=== PATIENT | female | born 1995 | race Native Hawaiian/Other Pacific Islander ===

== ENCOUNTER 2022-09-20 15:32 | Emergency (ER) | payer MEDICAID, SELFPAY ==
--- NOTE | ~2022-09-20 | US_ITS ---
EXAMINATION: US THYROID CLINICAL INFORMATION: COMPARISON: None TECHNIQUE: Linear transducer grayscale and color Doppler examination with attention to the region of the thyroid. FINDINGS: SIZE: Measurements of the thyroid lobes and nodules are given in sagittal, anteroposterior and transverse dimensions respectively. Right Thyroid Lobe: 5.4 x 2.2 x 2.3 cm, volume 14.1 mL. Parenchyma: The gland echotexture is homogeneous. Thyroid vascularity is normal. Left Thyroid Lobe: 5.4 x 1.4 x 1.6 cm, volume 6.2 mL. Parenchyma: The gland echotexture is homogeneous. Thyroid vascularity is normal. Isthmus: 0.3 cm in maximum AP dimension. Estimated total number of nodules greater than or equal to 1 cm: 1. Infrastructure Administrator nodules are described as follows: 1. Location: Lower pole right thyroid lobe. Size: 2.9 x 2.2 x 2.6 cm, volume 8.5 mL. Nodule characteristics: Composition: Solid/almost completely solid (2). Echogenicity: Hypoechoic (2). Shape: Not taller than wide (0). Margins: Smooth (0). Echogenic Foci: None (0). ACR TI-RADS total points: 4 ACR TI-RADS category: 4 NODES: No lymphadenopathy is seen in the tissue surrounding the thyroid gland. US/US thyroid IMPRESSION: A dominant 2.9 cm ACR TI-RADS category 4 nodule in the inferior right thyroid lobe . Given its size and ACR TI-RADS category, this nodule meets the ACR criteria recommendation for FNA. (Referring physician staff is being called, to be alerted of the above findings and recommendations.) PSA EM ACR TI-RADS RECOMMENDATION REFERENCE: Ultrasound-guided fine-needle aspiration, followup ultrasound, no further follow up. * TR1 (0 point) and TR 2 (2 points): No FNA or follow up. * TR3 (3 points): FNA if more than or equal to 2.5 cm in maximum dimension, followup ultrasound in 1, 3 and 5 years if 1.5 to 2.4 cm in maximum dimension. * TR4 (4-6 points): FNA if more than or equal to 1.5 cm in maximum dimension, followup ultrasound in 1, 2, 3 and 5 years if 1 to 1.4 cm in maximum dimension. * TR5 (more than or equal to 7 points): FNA if more than or equal to 1 cm in maximum dimension, followup ultrasound every year for 5 years if 0.5 to 0.9 cm in maximum dimension. * TR3, TR4 or TR5 nodules that are below the size threshold for followup receive no follow up.
--- NOTE | 2022-09-20 15:44 | ED.GENADULT ---
HPI - General Adult General Chief complaint: General Medical Stated complaint: lump on neck Time Seen by Provider: 09/20/22 18:02 Source: patient Mode of arrival: ambulatory Limitations: no limitations History of Present Illness HPI narrative: Patient is a 27 year old assigned female at with no reported medical history presenting to the emergency department today with a lump on her neck. Patient states that she noticed a lump on her neck starting a couple days ago. Patient denies any pain with the lump. Patient states that she has had some episodes of palpitations and hair thinning. Patient denies any dizziness, lightheadedness, abdominal pain, nausea, vomiting, fever, chills, blurry vision, double vision, loss of vision, chest pain, difficulty breathing, shortness of breath, back pain, night sweats, pain with urination, increased urinary frequency, increased urinary urgency, blood in her urine or stool, syncope or a near syncopal episode, recent trauma or falls, bowel incontinence, bladder incontinence, bowel retention, bladder retention, or any other complaints at this time. Onset (ago): day(s) (2) Location: neck Radiation: neck Severity: mild Severity scale (1-10): 2 Relieving factors: none Exacerbating factors: none Associated symptoms: denies other symptoms Treatments prior to arrival: none Related Data Allergies Allergy/AdvReac Type Severity Reaction Status Date / Time sulfamethoxazole Allergy Rash Verified 09/20/22 15:50 [From Bactrim] trimethoprim [From Bactrim] Allergy Rash Verified 09/20/22 15:50 Review of Systems Constitutional: Constitutional: Reports no additional constitutional complaints, Denies chills, Denies fever(s) and Denies night sweats Eyes: Eyes: Reports no additional eye complaints, Denies blurry vision, Denies change in vision, Denies diplopia, Denies eye discharge, Denies loss of vision and Denies eye pain ENT: Denies dizziness and Reports neck mass Cardiovascular: Cardiovascular: Reports no additional cardiovascular complaints, Denies chest pain, Denies lightheadedness, Denies Loss of Consciousness and Denies dyspnea Respiratory: Respiratory: Reports no additional respiratory complaints and Denies dyspnea Gastrointestinal: Gastrointestinal: Reports no additional gastrointestinal complaints, Denies abdominal pain, Denies melena, Denies hematochezia, Denies change in bowel habits and Denies change in stool character Genitourinary: Genitourinary: Denies hematuria, Denies urinary frequency, Denies dysuria, Denies urinary incontinence, Denies urinary hesitancy and Denies urinary urgency Musculoskeletal: Musculoskeletal: Reports no additional musculoskeletal complaints, Denies numbness and Denies tingling Neurologic: Denies dizziness, Denies loss of vision, Denies numbness and Denies tingling Psychiatric: Psychiatric: Reports no additional psychiatric complaints Endocrine: Endocrine: Reports no additional endocrine complaints Hematologic/Lymphatic: Hematologic/Lymphatic: Reports no additional hematologic/lymphatic complaints Allergic/Immunologic: Allergic/Immunologic: Reports no additional allergic/immunologic complaints [facility] Past Medical History Attestation statement: The following information was validated with the patient. Source: old records reviewed and nursing notes reviewed Social History Social History Advance Directives: No Advance Directives Information Provided: No Physical Exam ED Vital Signs: Vital Signs - 24 hr 09/20/22 15:45 Temperature 98.8 F Pulse Rate 73 Respiratory Rate 18 Blood Pressure 137/74 Pulse Oximetry 100 Oxygen Delivery Method Room Air BMI result Body Mass Index 28.8 Const General: cooperative, no acute distress, alert and awake Nutritional Appearance: well nourished Orientation/consciousness: patient oriented x3 Limitations: no limitations HENMT Head: Yes normal to inspection and Yes atraumatic Ears: hearing grossly normal bilaterally and external ears normal General nose exam: Normal external nose present, no nasal discharge noted and no epistaxis Face and sinus: Yes normal facial exam, No abrasion and No laceration Mouth: Normal oral and palatal mucosa present, no drooling and no muffled voice Eyes General: appearance normal, both eyes and all related structures Periorbital: periorbital findings normal Eyelids: Yes eyelids normal Conjunctivae: conjunctivae normal Pupils: Equal, round and reactive pupils present EOM: EOMs intact bilaterally Neck Other: mass present to the right side of the neck in the area of the thyroid gland Neck: Yes full ROM and Yes no lymphadenopathy Chest Chest palpation & inspection: normal inspection of the chest Resp Effort & Inspection: normal respiratory effort and able to speak in complete sentences Auscultation: clear to auscultation bilaterally Cardio Rate: regular rate Rhythm: regular rhythm GI Inspection: Yes normal to inspection Palpation (GI): Soft to palpation, not firm, nontender, no guarding and not rigid Neuro General: patient oriented x3 and moves all extremities Cranial nerves: Yes Equal, round and reactive pupils present Cognition (Neuro): normal cognition Motor exam (neuro): 5/5 motor strength present throughout Sensory Exam: Normal double simultaneous stimulation for sensation Coordination: [id number] test normal Extrem General: Yes normal to inspection, Yes full ROM and Yes capillary refill normal Psych Appearance: grossly normal Mental Status: mental status grossly normal Affect: normal affect Attitude: cooperative Thought process: Normal thought process present Thought content: Normal thought content present Insight: Good insight present (Psych) Medical Decision Making Medical Decision Making MDM Narrative: Patient is a 27 year old assigned female at with no reported medical history presenting to the emergency department today with a neck mass. Patient's physical exam showed an obviously enlarged area of the right side of the neck near the area of the thyorid. Patient's blood work showed a mildly elevated WBC count of 12.4 which is consistent with a stress reaction. Patient's TSH was normal. Patient's thyroid US showed a dominant 2.9 cm ACR TI-RADS category 4 nodule in the inferior right thyroid lobe. I explained my physical exam findings as well as all test results to the patient. I answered all questions asked by the patient. I stressed the importance of the patient taking her medication as prescribed. I stressed the importance of the patient following up with her primary care provider and a general surgeon as she needs a fine needle aspiration of this nodule, MARCELL. I stressed the importance of the patient returning to the emergency department immediately if her symptoms were to worsen or if she were to develop any dizziness, shortness of breath, difficulty breathing, chest pain, blurry vision, loss of vision, nausea, vomiting, abdominal pain, fever, chills, back pain, or any other complaints. Patient verbalized agreement and understanding with this treatment plan and discharge. Differential Diagnosis Differential Diagnoses: The differential diagnosis associated with the presentation includes thyroid nodule, thyroid cancer Lab Data [facility] Lab Attestation statement: I reviewed the patient's lab results. Result Diagrams: 09/20/22 16:18 09/20/22 16:18 Labs: Lab Results 09/20/22 09/20/22 Range/Units 16:18 16:18 WBC 12.4 H (4.8-10.8) X10*3/uL RBC 4.53 (4.20-5.50) X10*6/uL Hgb 13.5 (12.0-16.0) g/dl Hct 40.7 (37.0-47.0) % MCV 89.8 (80.0-98.0) fL MCH 29.8 (27.0-33.0) pg MCHC 33.2 (31.0-35.0) g/dl RDW 12.7 (11.0-16.0) % Plt Count 282 (160-400) X10*3/uL MPV 9.7 (9.4-12.3) fL Immature Gran % (Auto) 0.3 (0.0-0.4) % Neut % (Auto) 76.4 H (45-73) % Lymph % (Auto) 15.1 L (20-40) % [place] % (Auto) 6.1 (2-11) % Eos % (Auto) 1.8 (0-4) % Baso % (Auto) 0.3 (0-2) % Lymph # (Auto) 1.9 (1.2-4.9) X10*3/uL [place] # (Auto) 0.8 (0.1-1.2) X10*3/uL Eos # (Auto) 0.2 (0.0-0.4) X10*3/uL Baso # (Auto) 0.0 (0.0-0.2) X10*3/uL Abs Immat Gran (auto) 0.04 H (0.00-0.03) X10*3/uL Absolute Neuts (auto) 9.5 H (2.0-8.3) x10*3/uL Absolute Nucleated RBC 0.000 (0.0-0.012) X10*3/uL Nucleated RBC % (auto) 0.0 (0.0-0.2) /100WBC Sodium 137 (135-145) mmol/L Potassium 4.5 (3.3-5.1) mmol/L Chloride 105 (96-108) mmol/L Carbon Dioxide 27 (22-29) mmol/L Anion Gap 10 L (12-20) BUN 9 (9-16) mg/dL Creatinine 0.75 (0.5-1.4) mg/dL Estim Creat Clear Calc 132.3 Estimated GFR > 60 Random Glucose 127 H (60-115) mg/dL Calcium 9.2 (8.4-10.2) mg/dL Magnesium 2.2 (1.6-2.6) mg/dL Total Bilirubin 0.6 (0.0-1.0) mg/dL AST 24 (5-31) U/L ALT 12 (0-31) U/L Alkaline Phosphatase 49 (39-117) U/L Total Protein 7.5 (6.5-8.0) g/dL Albumin 4.4 (3.5-5.0) g/dL TSH 1.05 (0.32-4.0) uIU/mL Radiology Impression Discussion of test interpretation with radiology: I have reviewed the radiologist's reading. Radiologist Impression: My interpretation is in agreement with the radiologist's impression of this imaging study. EXAMINATION: US THYROID CLINICAL INFORMATION: COMPARISON: None TECHNIQUE: Linear transducer grayscale and color Doppler examination with attention to the region of the thyroid. FINDINGS: ? SIZE: Measurements of the thyroid lobes and nodules are given in sagittal, anteroposterior and transverse dimensions respectively. Right Thyroid Lobe: 5.4 x 2.2 x 2.3 cm, volume 14.1 mL. Parenchyma: The gland echotexture is homogeneous. Thyroid vascularity is normal. Left Thyroid Lobe: 5.4 x 1.4 x 1.6 cm, volume 6.2 mL. Parenchyma: The gland echotexture is homogeneous. Thyroid vascularity is normal. Isthmus: 0.3 cm in maximum AP dimension. Estimated total number of nodules greater than or equal to 1 cm: 1. Carpenter Assistant nodules are described as follows: 1. Location: Lower pole right thyroid lobe. ?? ? Size: 2.9 x 2.2 x 2.6 cm, volume 8.5 mL. ?? ? Nodule characteristics: ?? ? Composition: Solid/almost completely solid (2). ?? ? Echogenicity: Hypoechoic (2). ?? ? Shape: Not taller than wide (0). ?? ? Margins: Smooth (0). ?? ? Echogenic Foci: None (0). ?? ? ACR TI-RADS total points: 4 ?? ? ACR TI-RADS category: 4 NODES: No lymphadenopathy is seen in the tissue surrounding the thyroid gland. US/US thyroid IMPRESSION: A dominant 2.9 cm ACR TI-RADS category 4 nodule in the inferior right thyroid lobe . ? Given its size and ACR TI-RADS category, this nodule meets the ACR criteria recommendation for FNA. ? (Referring physician staff is being called, to be alerted of the above findings and recommendations.) ? PSA EM ACR TI-RADS RECOMMENDATION REFERENCE: Ultrasound-guided fine-needle aspiration, followup ultrasound, no further follow up. ? * TR1 (0 point) and TR 2 (2 points): No FNA or follow up. ? * TR3 (3 points): FNA if more than or equal to 2.5 cm in maximum dimension, followup ultrasound in 1, 3 and 5 years if 1.5 to 2.4 cm in maximum dimension. ? * TR4 (4-6 points): FNA if more than or equal to 1.5 cm in maximum dimension, followup ultrasound in 1, 2, 3 and 5 years if 1 to 1.4 cm in maximum dimension. ? * TR5 (more than or equal to 7 points): FNA if more than or equal to 1 cm in maximum dimension, followup ultrasound every year for 5 years if 0.5 to 0.9 cm in maximum dimension. ? * TR3, TR4 or TR5 nodules that are below the size threshold for followup receive no follow up. Dictated By: Areli Portillo MD Signed By: Electronically signed by Areli Portillo MD 09/20/22 4331 Discharge Plan Discharge Clinical Impression: Thyroid nodule Patient Disposition: Home, Self-Care Instructions: Thyroid Nodules (ED), Total Thyroidectomy (DC), Thyroid Fine-Needle Aspiration Biopsy (DC) Additional Instructions: Follow up with your primary care provider and a general surgeon. Return to the emergency department immediately if your symptoms worsen or if you develop any dizziness, shortness of breath, difficulty breathing, chest pain, blurry vision, loss of vision, nausea, vomiting, abdominal pain, fever, chills, back pain, or any other complaints. Referrals: [facility] [place] General Surgeons [Provider Group] (Call to establish and follow up with a general surgeon.) [facility] [place] Family Medicine [Provider Group] (Call to establish and follow up with a primary care provider. If you already have a primary care provider, please follow up with them. ) [facility] [place] Primary Care, Vijaya [Provider Group] (Call to establish and follow up with a primary care provider. If you already have a primary care provider, please follow up with them. ) [facility] [place] Primary Care,Oneil [Provider Group] (Call to establish and follow up with a primary care provider. If you already have a primary care provider, please follow up with them. ) Atif Arellano MD [Physician] - Interventions: ED Discharge Assessment Last Done: 09/20/22 18:15 Discharge Date/Time: 09/20/22 18:22 Print Language: Khmer
[2022-09-20 15:45] VITALS: BP 137/74; PULSE 73; RESP 18; TEMP 37.1; O2SAT 100; BMI 28.8
[2022-09-20 16:27] LABS: MANUAL DIFF FLAG NO
[2022-09-20 16:39] LABS: Basophils Percent Auto 0.3 % (0-2); Eosinophils Absolute Auto 0.2 X10*3/uL (0.0-0.4); Eosinophils Percent Auto 1.8 % (0-4); Hematocrit 40.7 % (37.0-47.0); Hemoglobin 13.5 g/dl (12.0-16.0); Imm Gran Abs Auto 0.04 X10*3/uL (0.00-0.03); Imm Gran Pct Auto 0.3 % (0.0-0.4); Lymphocytes Absolute Auto 1.9 X10*3/uL (1.2-4.9); Lymphocytes Percent Auto 15.1 % (20-40); Mean Corpuscular HGB Conc 33.2 g/dl (31.0-35.0); Mean Corpuscular Hemoglobin 29.8 pg (27.0-33.0); Mean Corpuscular Volume 89.8 fL (80.0-98.0); Mean Platelet Volume 9.7 fL (9.4-12.3); Monocytes Absolute Auto 0.8 X10*3/uL (0.1-1.2); Monocytes Percent Auto 6.1 % (2-11); Neutrophils Absolute Auto 9.5 x10*3/uL (2.0-8.3); Neutrophils Percent Auto 76.4 % (45-73); Platelet Count 282 X10*3/uL (160-400); Red Blood Count 4.53 X10*6/uL (4.20-5.50); Red Cell Distribution Width 12.7 % (11.0-16.0); White Blood Count 12.4 X10*3/uL (4.8-10.8)
[2022-09-20 16:48] LABS: Alanine Aminotransferase 12 U/L (0-31); Albumin Level 4.4 g/dL (3.5-5.0); Alkaline Phosphatase 49 U/L (39-117); Anion Gap 10 (12-20); Aspartate Amino Transferase 24 U/L (5-31); Bilirubin Total 0.6 mg/dL (0.0-1.0); Blood Urea Nitrogen 9 mg/dL (9-16); Calcium 9.2 mg/dL (8.4-10.2); Carbon Dioxide 27 mmol/L (22-29); Chloride 105 mmol/L (96-108); Creatinine Clr Calc Pharmacy 132.3; Estimated Glomerular Filt Rate > 60; Glucose Random 127 mg/dL (60-115); Magnesium 2.2 mg/dL (1.6-2.6); Potassium 4.5 mmol/L (3.3-5.1); Sodium 137 mmol/L (135-145); Total Protein 7.5 g/dL (6.5-8.0)
[2022-09-20 17:03] LABS: TSH reflex Free T4 1.05 uIU/mL (0.32-4.0)
== END 2022-09-20 18:22 | disposition home or self-care (01) ==
PROVIDERS: Physician Assistant Medical; Emergency Provider Internal Medicine
DX: E04.1 Nontoxic single thyroid nodule (principal); R22.1 Localized swelling, mass and lump, neck; Z79.899 Other long term (current) drug therapy
CPT/HCPCS: 36415; 76536; 80053; 83735; 84443; 85025; 99282; 99283

== ENCOUNTER 2022-11-12 13:16 | Outpatient (REF) | payer OTHER, SELFPAY ==
[2022-11-12 15:23] LABS: Free T4 (Free Thyroxine) 1.05 ng/dL (0.71-1.85); Thyroid Stimulating Hormone 1.25 uIU/mL (0.32-4.0)
== END 2022-11-12 13:17 | disposition home or self-care (01) ==
LOC: HO.LAB 13:16
PROVIDERS: PCP Registered Nurse; Visit Provider Internal Medicine
DX: E04.1 Nontoxic single thyroid nodule (principal)
CPT/HCPCS: 36415; 84439; 84443; 99202

== ENCOUNTER 2023-02-11 08:58 | Outpatient (REF) | payer OTHER, SELFPAY ==
--- NOTE | 2023-02-11 09:36 | PM.OP ---
Brief Operative Note Date of Service: 02/11/23 Pre-op diagnosis: Thyroid nodule Procedure: This is doctor Lou Shea. This is an ultrasound-guided fine-needle aspiration report. Indication: Multinodular Thyroid Porcedure: Procedure was explained to the patient. Alternatives, the risk and benefits were discussed. Written consent was obtained. A time-out was also obtained. After sterile preparation, 1 ml of 1% lidocaine solution was applied subcutaneously for anesthetic effect. Then Fine-needle aspiration of a right lower pole 1.3 cm thyroid nodule was performed using direct ultrasound guidance to confirm accurate needle placement. Two aspirations were made using 27 gauge needles. An additional 5 aspirations were made using 25 guage needles. Samples were submitted for cytology. One pass was dedicated for [employer] Gene sequencing director global medical affairs testing. One pass was dedicated for flow cytometry testing. The patient tolerated the procedure well. Aftercare instructions were provided. Impression: Uncomplicated fine needle aspiration biopsy of a right lower pole 1.3 cm thyroid nodule under ultrasound guidance. Surgeon: Lou Shea, DO Was an Computer Lab Aide used for this Procedure?: No Estimated blood loss (mL): 0
[2023-02-11] MEDS: Lidocaine HCl 1 % MPF 5 ML VIAL SUBCUT (10:50)
== END 2023-02-11 08:59 | disposition home or self-care (01) ==
LOC: HO.US 08:58
PROVIDERS: PCP Registered Nurse; Visit Provider Internal Medicine
DX: E04.2 Nontoxic multinodular goiter (principal)
CPT/HCPCS: 10005; 36415; 88172; 88173; 88177; 88184; 88185; 88305

== ENCOUNTER → 2023-02-25 13:55 | Outpatient (BNVA) | payer OTHER, SELFPAY | PROVIDERS: PCP Registered Nurse; Visit Provider Internal Medicine ==

== ENCOUNTER 2023-05-10 11:32 | Outpatient (REF) | payer OTHER, SELFPAY ==
[2023-05-10 13:40] LABS: Albumin Level 4.3 g/dL (3.5-5.0); Phosphorus 3.9 mg/dL (2.7-4.5)
[2023-05-10 13:56] LABS: Free T4 (Free Thyroxine) 0.81 ng/dL (0.71-1.85); Vitamin D 25-OH Total 22.5 ng/mL (>30)
[2023-05-11 14:13] LABS: PTHI 34 pg/mL (16-77)
== END 2023-05-10 11:33 | disposition home or self-care (01) ==
LOC: HO.LAB 11:32
PROVIDERS: PCP Registered Nurse; Visit Provider Internal Medicine
DX: E55.9 Vitamin D deficiency, unspecified (principal); C73 Malignant neoplasm of thyroid gland
CPT/HCPCS: 36415; 82040; 82306; 83970; 84100; 84439; 84443

== ENCOUNTER 2023-10-06 16:14 | Outpatient (AMB) | payer MEDICAID, SELFPAY ==
--- NOTE | 2023-10-06 16:21 | A.OFFVIS_ITS ---
Intake Vital Signs 10/06/23 16:22 Height 5 ft 9 in Weight 219 lb 12.814 oz BMI 32.5 BP 92/52 L Blood Pressure Location Rt brachial Position Sitting Pulse 69 Pulse Source Pulse Oximeter Intake Visit Reasons: Thyroid Cancer-confirmed Intake Note: Patient presents for Thyroid Cancer follow up visit. Last seen by Dr. Medina 02/25/23. Machine Hose Cutter Required: No Accompanied by: Self / Same As Patient Allergies sulfamethoxazole [From Bactrim] Allergy (Verified 10/06/23 16:31) Rash trimethoprim [From Bactrim] Allergy (Verified 10/06/23 16:31) Rash Medication List - Last Reconciled 10/06/23 by Jose Vail MD levothyroxine 150 mcg PO DAILY HPI HPI Comments History of Present Illness Details 27 YO Female with no significant PMHx wh o is seen in F/U for a thyroid nodule. The patient last saw Dr. Medina on 02/25/2023 She states in August 2022 she woke with tenderness in the neck and a lump on the R side. She presented to the ED and was found to have a thyroid nodule. She was referred to Endocrinology. She underwent a thyroid US 09/20/2022 which revealed a RLP 2.9 cm thyroid nodule. She underwent FNA biopsy of her right lower pole 2.9 cm thyroid nodule 02/11/2023 with cytology suspicious for malignancy (bethesda category V). She denies any compressive symptoms currently. She reports palpitations and anxiety, but otherwise denies any symptoms of hyper or hypothyroidism. She denies any personal history of head or neck irradiation. She denies any family history of thyroid cancer. Thyroid US: Right Thyroid Lobe: 5.4 x 2.2 x 2.3 cm, volume 14.1 mL. Parenchyma: The gland echotexture is homogeneous. Thyroid vascularity is normal. Left Thyroid Lobe: 5.4 x 1.4 x 1.6 cm, volume 6.2 mL. Parenchyma: The gland echotexture is homogeneous. Thyroid vascularity is normal. Isthmus: 0.3 cm in maximum AP dimension. Estimated total number of nodules greater than or equal to 1 cm: 1. Website Admin nodules are described as follows: 1. Location: Lower pole right thyroid lo be. ?? ? Size: 2.9 x 2.2 x 2.6 cm, volume 8.5 mL. ?? ? Nodule characteristics: ?? ? Composition: Solid/almost completely solid (2). ?? ? Echogenicity: Hypoechoic (2). ?? ? Shape: Not taller than wide (0). ?? ? Margins: Smooth (0). ?? ? Echogenic Foci: None (0). ?? ? ACR TI-RADS total points: 4 ?? ? ACR TI-RADS category: 4 NODES: No lymphadenopathy is seen in the tissue surrounding the thyroid gland. 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 Patient subsequently underwent a completion thyroidectomy. She is currently on ? mcg levothyroxine. Feeling fien without sx of hypothyroidism or hyperthyroidism [facility] Medical History (Updated 05/10/23 @ 10:16 by Lou Shea DO) Vitamin D deficiency Thyroid cancer Thyroid nodule Surgical History (Updated 10/06/23 @ 17:00 by EDGARD Licona) History of lobectomy of thyroid Family History Father Diabetes mellitus Mother No known health problems Social History Alcohol intake: current Alcohol intake frequency: holidays/special occasions only Patient Tobacco Use Status: Never used Tobacco Physical Exam Vital Signs: Last Vital Signs Pulse 69 10/06/23 16:22 BP 92/52 L 10/06/23 16:22 BMI result Body Mass Index 32.5 Const Other: Healing scar status post completion thyroidectomy. 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 She is currently on ug of levothyroxine. She appears to be clinically euthyroid. Plan is to check a TSH free T4 , thyroglobulin. Most of the literature points towards not using radioactive iodine in this low risk patient but following with neck ultrasound and thyroglobulin. I will discuss this with the patient and the options. I am also going to send the patient for 2nd opinion to Dr. Lugo in [place] Orders: Orders Free T4 (Free Thyroxine) Today C73 - Malignant neoplasm of thyroid gland Thyroid Stimulating Hormone Today C73 - Malignant neoplasm of thyroid gland Thyroglobulin Tumor Marker Today C73 - Malignant neoplasm of thyroid gland Calcium Today C73 - Malignant neoplasm of thyroid gland Albumin Level Today C73 - Malignant neoplasm of thyroid gland Referrals Endocrinology Referral C73 - Malignant neoplasm of thyroid gland Coding Level of Care Code Est Pt Level 3 (06287) Diagnoses Thyroid cancer C73
[2023-10-06 16:22] VITALS: BP 92/52; PULSE 69; BMI 32.5
== END 2023-10-06 17:00 | disposition home or self-care (01) ==
PROVIDERS: PCP Registered Nurse; Referring Provider Registered Nurse; Visit Provider Internal Medicine Endocrinology, Diabetes & Metabolism
DX: C73 Malignant neoplasm of thyroid gland (principal)
CPT/HCPCS: 99213

== ENCOUNTER → 2023-10-06 16:14 | Outpatient (BNVA) | payer MEDICAID, SELFPAY | PROVIDERS: PCP Registered Nurse; Visit Provider Internal Medicine Endocrinology, Diabetes & Metabolism | DX: C73 Malignant neoplasm of thyroid gland (principal); Z79.899 Other long term (current) drug therapy | CPT/HCPCS: 99212 ==

== ENCOUNTER 2023-10-27 15:18 | Outpatient (REF) | payer MEDICAID, SELFPAY ==
[2023-10-27 17:17] LABS: Albumin Level 4.5 g/dL (3.5-5.0); Calcium 9.3 mg/dL (8.4-10.2)
[2023-10-27 17:40] LABS: Free T4 (Free Thyroxine) 1.37 ng/dL (0.71-1.85); Thyroid Stimulating Hormone 0.06 uIU/mL (0.32-4.0)
[2023-10-30 06:59] LABS: Thyroglobulin Antibody <1 IU/mL (<=1); Thyroglobulin Level <0.1 ng/mL
== END 2023-10-27 15:19 | disposition home or self-care (01) ==
LOC: HO.LAB 15:18
PROVIDERS: Visit Provider Internal Medicine Endocrinology, Diabetes & Metabolism
DX: C73 Malignant neoplasm of thyroid gland (principal)
CPT/HCPCS: 36415; 82040; 82310; 84432; 84439; 84443; 86800

== ENCOUNTER 2024-01-05 15:58 | Outpatient (AMB) | payer MEDICAID, SELFPAY ==
[2024-01-05 15:59] VITALS: BP 110/58; PULSE 72; BMI 32.5
--- NOTE | 2024-01-05 15:59 | A.OFFVIS_ITS ---
Intake Vital Signs 01/05/24 15:59 Height 5 ft 9 in Weight 220 lb 0.341 oz BMI 32.5 BP 110/58 L Blood Pressure Location Lt brachial Position Sitting Pulse 72 Pulse Source Pulse Oximeter Intake Visit Reasons: f/u thyroid cancer-confirmed Intake Note: Patient present today for Thyroid cancer follow up visit. Prepress Stripper Required: No Accompanied by: Self / Same As Patient Allergies sulfamethoxazole [From Bactrim] Allergy (Verified 01/05/24 16:03) Rash trimethoprim [From Bactrim] Allergy (Verified 01/05/24 16:03) Rash HPI HPI Comments History of Present Illness Details 28 YO Female with no significant PMHx wh o is seen in F/U for a thyroid nodule. The patient last saw Dr. Medina on 02/25/2023 She states in August 2022 she woke with tenderness in the neck and a lump on the R side. She presented to the ED and was found to have a thyroid nodule. She was referred to Endocrinology. She underwent a thyroid US 09/20/2022 which revealed a RLP 2.9 cm thyroid nodule. She underwent FNA biopsy of her right lower pole 2.9 cm thyroid nodule 02/11/2023 with cytology suspicious for malignancy (bethesda category V). She denies any compressive symptoms currently. She reports palpitations and anxiety, but otherwise denies any symptoms of hyper or hypothyroidism. She denies any personal history of head or neck irradiation. She denies any family history of thyroid cancer. Thyroid US: Right Thyroid Lobe: 5.4 x 2.2 x 2.3 cm, volume 14.1 mL. Parenchyma: The gland echotexture is homogeneous. Thyroid vascularity is normal. Left Thyroid Lobe: 5.4 x 1.4 x 1.6 cm, volume 6.2 mL. Parenchyma: The gland echotexture is homogeneous. Thyroid vascularity is normal. Isthmus: 0.3 cm in maximum AP dimension. Estimated total number of nodules greater than or equal to 1 cm: 1. Vp Cardiovascular Service Line nodules are described as follows: 1. Location: Lower pole right thyroid lo be. ?? ? Size: 2.9 x 2.2 x 2.6 cm, volume 8.5 mL. ?? ? Nodule characteristics: ?? ? Composition: Solid/almost completely solid (2). ?? ? Echogenicity: Hypoechoic (2). ?? ? Shape: Not taller than wide (0). ?? ? Margins: Smooth (0). ?? ? Echogenic Foci: None (0). ?? ? ACR TI-RADS total points: 4 ?? ? ACR TI-RADS category: 4 NODES: No lymphadenopathy is seen in the tissue surrounding the thyroid gland. 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 Patient subsequently underwent a completion thyroidectomy. She is currently on ? mcg levothyroxine. Feeling fien without sx of hypothyroidism or hyperthyroidism. Currently 12 wks TSH at [facility] was 0.78 PFSH Medical History (Updated 05/10/23 @ 10:16 by Lou Shea DO) Vitamin D deficiency Thyroid cancer Thyroid nodule Surgical History History of lobectomy of thyroid Family History Father Diabetes mellitus Mother No known health problems Social History Alcohol intake: current Alcohol intake frequency: holidays/special occasions only Patient Tobacco Use Status: Never used Tobacco Physical Exam Vital Signs: Last Vital Signs Pulse 72 01/05/24 15:59 BP 110/58 L 01/05/24 15:59 BMI result Body Mass Index 32.5 Const Other: Healing scar status post completion thyroidectomy. 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 She is currently on 137 ug of levothyroxine. She appears to be clinically euthyroid but has a suppressed TSH.Tg is undetectable Plan is to increase levothyroxine to 150 ug and recheck TSH and free T4 in 4 wks. Will order neck US after . Medications: New levothyroxine 150 mcg PO DAILY 30 tabs 5RF Discontinued levothyroxine Discontinued Reason: Doctor's Order 137 mcg PO DAILY 30 tabs 5RF Coding Level of Care Code Est Pt Level 3 (12897) Diagnoses Thyroid cancer C73
== END 2024-01-05 16:36 | disposition home or self-care (01) ==
PROVIDERS: PCP Registered Nurse; Referring Provider Registered Nurse; Visit Provider Internal Medicine Endocrinology, Diabetes & Metabolism
DX: C73 Malignant neoplasm of thyroid gland (principal)
CPT/HCPCS: 99213

== ENCOUNTER → 2024-01-05 15:58 | Outpatient (BNVA) | payer MEDICAID, SELFPAY | PROVIDERS: PCP Registered Nurse; Visit Provider Internal Medicine Endocrinology, Diabetes & Metabolism | DX: C73 Malignant neoplasm of thyroid gland (principal) | CPT/HCPCS: 99212 ==

== ENCOUNTER 2024-03-02 14:43 | Outpatient (REF) | payer MEDICAID, SELFPAY ==
[2024-03-02 17:02] LABS: Free T4 (Free Thyroxine) 1.04 ng/dL (0.71-1.85); Thyroid Stimulating Hormone 1.15 uIU/mL (0.32-4.0)
== END 2024-03-02 14:44 | disposition home or self-care (01) ==
LOC: HO.LAB 14:43
PROVIDERS: Visit Provider Internal Medicine Endocrinology, Diabetes & Metabolism
DX: C73 Malignant neoplasm of thyroid gland (principal)
CPT/HCPCS: 36415; 84439; 84443

== ENCOUNTER 2024-03-06 14:59 | Outpatient (AMB) | payer MEDICAID, SELFPAY ==
[2024-03-06 15:02] VITALS: BP 110/64; PULSE 71; BMI 33.1
--- NOTE | 2024-03-06 15:02 | MHC.OFFVIS ---
Vital Signs 03/06/24 15:02 Height 5 ft 9 in Weight 224 lb 6.889 oz BMI 33.1 BP 110/64 Blood Pressure Location Lt brachial Position Sitting Pulse 71 Pulse Source Pulse Oximeter Intake Visit Reasons: f/u thyroid cancer-lvm Intake Note: Patient presents today for Thyroid Cancer follow up. It Security Manager Required: No Accompanied by: Self / Same As Patient Allergies sulfamethoxazole [From Bactrim] Allergy (Verified 03/06/24 15:10) Rash trimethoprim [From Bactrim] Allergy (Verified 03/06/24 15:10) Rash Medication List - Last Reconciled 03/06/24 by Jose Vail MD cholecalciferol (vitamin D3) 125 mcg PO DAILY levothyroxine 150 mcg PO DAILY omega-3 fatty acids-fish oil 360-1,200 mg (Fish Oil) 1 cap PO DAILY HPI Comments Details: 28 YO Female with no significant PMHx who is seen in F/U for a thyroid nodule. She states in August 2022 she woke with tenderness in the neck and a lump on the R side. She presented to the ED and was found to have a thyroid nodule. She was referred to Endocrinology. She underwent a thyroid US 09/20/2022 which revealed a RLP 2.9 cm thyroid nodule. She underwent FNA biopsy of her right lower pole 2.9 cm thyroid nodule 02/11/2023 with cytology suspicious for malignancy (bethesda category V). She denies any compressive symptoms currently. She reports palpitations and anxiety, but otherwise denies any symptoms of hyper or hypothyroidism. She denies any personal history of head or neck irradiation. She denies any family history of thyroid cancer. Thyroid US: Right Thyroid Lobe: 5.4 x 2.2 x 2.3 cm, volume 14.1 mL. Parenchyma: The gland echotexture is homogeneous. Thyroid vascularity is normal. Left Thyroid Lobe: 5.4 x 1.4 x 1.6 cm, volume 6.2 mL. Parenchyma: The gland echotexture is homogeneous. Thyroid vascularity is normal. Isthmus: 0.3 cm in maximum AP dimension. Estimated total number of nodules greater than or equal to 1 cm: 1. Furnace Setter nodules are described as follows: 1. Location: Lower pole right thyroid lobe. ?? ? Size: 2.9 x 2.2 x 2.6 cm, volume 8.5 mL. ?? ? Nodule characteristics: ?? ? Composition: Solid/almost completely solid (2). ?? ? Echogenicity: Hypoechoic (2). ?? ? Shape: Not taller than wide (0). ?? ? Margins: Smooth (0). ?? ? Echogenic Foci: None (0). ?? ? ACR TI-RADS total points: 4 ?? ? ACR TI-RADS category: 4 NODES: No lymphadenopathy is seen in the tissue surrounding the thyroid gland. 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 Patient subsequently underwent a completion thyroidectomy. She is currently on 150 mcg levothyroxine. Feeling fien without sx of hypothyroidism or hyperthyroidism. Currently 21 wks [facility] Medical History (Updated 05/10/23 @ 10:16 by Lou Shea DO) Vitamin D deficiency Thyroid cancer Thyroid nodule Surgical History History of lobectomy of thyroid Family History Father Diabetes mellitus Mother No known health problems Social History Alcohol intake: current Alcohol intake frequency: holidays/special occasions only Patient Tobacco Use Status: Never used Tobacco Physical Exam Vital Signs: Last Vital Signs Pulse 71 03/06/24 15:02 BP 110/64 03/06/24 15:02 BMI result Body Mass Index 33.1 Const Other: Healing scar status post completion thyroidectomy. 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 She is currently on 150 ug of levothyroxine. She appears to be clinically and biochemically euthyroid .Tg is undetectable Plan is to continue the current therapy. Will recheck TSH and free T4 beginning 3rd trimester in 10 weeks Will order neck US after . Orders: Orders Free T4 (Free Thyroxine) 10 Weeks C73 - Malignant neoplasm of thyroid gland Thyroid Stimulating Hormone 10 Weeks C73 - Malignant neoplasm of thyroid gland Coding Level of Care Code Est Pt Level 3 (36629) Diagnoses Thyroid cancer C73
== END 2024-03-06 15:30 | disposition home or self-care (01) ==
PROVIDERS: PCP Registered Nurse; Visit Provider Internal Medicine Endocrinology, Diabetes & Metabolism
DX: C73 Malignant neoplasm of thyroid gland (principal)
CPT/HCPCS: 99213

== ENCOUNTER → 2024-03-06 14:59 | Outpatient (BNVA) | payer MEDICAID, SELFPAY | PROVIDERS: PCP Registered Nurse; Visit Provider Internal Medicine Endocrinology, Diabetes & Metabolism | DX: C73 Malignant neoplasm of thyroid gland (principal) | CPT/HCPCS: 99212 ==

== ENCOUNTER 2024-06-19 08:14 | Outpatient (REF) | payer MEDICAID, SELFPAY ==
[2024-06-19 10:11] LABS: Free T4 (Free Thyroxine) 1.12 ng/dL (0.71-1.85); Thyroid Stimulating Hormone 1.25 uIU/mL (0.32-4.0)
== END 2024-06-19 08:15 | disposition home or self-care (01) ==
LOC: HO.LAB 08:14
PROVIDERS: PCP Family Medicine; Visit Provider Internal Medicine Endocrinology, Diabetes & Metabolism
DX: C73 Malignant neoplasm of thyroid gland (principal)
CPT/HCPCS: 36415; 84439; 84443; 99212

== ENCOUNTER → 2024-06-19 08:42 | Outpatient (AMB) | payer MEDICAID, SELFPAY ==
--- NOTE | 2024-06-19 08:43 | A.OFFVIS_ITS ---
Vital Signs 06/19/24 08:47 Height 5 ft 9 in Weight 241 lb 10.026 oz BMI 35.7 BP 98/58 L Blood Pressure Location Lt brachial Position Sitting Pulse 74 Pulse Source Pulse Oximeter Intake Visit Reasons: f/u Thyroid Cancer/ LVM Intake Note: Patient present today for Thyroid Cancer follow up. Patient is 36 weeks . Publications Production Supervisor Required: No Accompanied by: Self / Same As Patient Allergies sulfamethoxazole [From Bactrim] Allergy (Verified 06/19/24 08:47) Rash trimethoprim [From Bactrim] Allergy (Verified 06/19/24 08:47) Rash HPI Comments Details: 28 YO Female with no significant PMHx who is seen in F/U for a thyroid nodule. She states in August 2022 she woke with tenderness in the neck and a lump on the R side. She presented to the ED and was found to have a thyroid nodule. She was referred to Endocrinology. She underwent a thyroid US 09/20/2022 which revealed a RLP 2.9 cm thyroid nodule. She underwent FNA biopsy of her right lower pole 2.9 cm thyroid nodule 02/11/2023 with cytology suspicious for malignancy (bethesda category V). She denies any compressive symptoms currently. She reports palpitations and anxiety, but otherwise denies any symptoms of hyper or hypothyroidism. She denies any personal history of head or neck irradiation. She denies any family history of thyroid cancer. Thyroid US: Right Thyroid Lobe: 5.4 x 2.2 x 2.3 cm, volume 14.1 mL. Parenchyma: The gland echotexture is homogeneous. Thyroid vascularity is normal. Left Thyroid Lobe: 5.4 x 1.4 x 1.6 cm, volume 6.2 mL. Parenchyma: The gland echotexture is homogeneous. Thyroid vascularity is normal. Isthmus: 0.3 cm in maximum AP dimension. Estimated total number of nodules greater than or equal to 1 cm: 1. Radio Program Checker nodules are described as follows: 1. Location: Lower pole right thyroid lobe. ?? ? Size: 2.9 x 2.2 x 2.6 cm, volume 8.5 mL. ?? ? Nodule characteristics: ?? ? Composition: Solid/almost completely solid (2). ?? ? Echogenicity: Hypoechoic (2). ?? ? Shape: Not taller than wide (0). ?? ? Margins: Smooth (0). ?? ? Echogenic Foci: None (0). ?? ? ACR TI-RADS total points: 4 ?? ? ACR TI-RADS category: 4 NODES: No lymphadenopathy is seen in the tissue surrounding the thyroid gland. 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 Patient subsequently underwent a completion thyroidectomy. She is currently on 150 mcg levothyroxine. Feeling fien without sx of hypothyroidism or hyperthyroidism. Currently 36 wks [facility] Medical History (Updated 05/10/23 @ 10:16 by Lou Shea DO) Vitamin D deficiency Thyroid cancer Thyroid nodule Surgical History History of lobectomy of thyroid Family History Father Diabetes mellitus Mother No known health problems Social History Alcohol intake: current Alcohol intake frequency: holidays/special occasions only Patient Tobacco Use Status: Never used Tobacco Physical Exam Const Other: Healing scar status post completion thyroidectomy. 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 She is currently on 150 ug of levothyroxine. She appears to be clinically and biochemically euthyroid .Tg is undetectable Plan is to continue the current therapy. Will recheck TSH and free T4 and adjust levothyroxine accordingly. Will also check TSH and free T4 4-6 weeks . Will have her follow up with Dr. Pena who has expertise in neck ultrasound Orders: Orders Thyroid Stimulating Hormone 6 Weeks C73 - Malignant neoplasm of thyroid gland Free T4 (Free Thyroxine) 6 Weeks C73 - Malignant neoplasm of thyroid gland Coding Level of Care Code Est Pt Level 3 (04054) Diagnoses Thyroid cancer C73
[2024-06-19 08:47] VITALS: BP 98/58; PULSE 74; BMI 35.7
== END ==
PROVIDERS: PCP Registered Nurse; Visit Provider Internal Medicine Endocrinology, Diabetes & Metabolism
DX: C73 Malignant neoplasm of thyroid gland (principal)
CPT/HCPCS: 99213

== ENCOUNTER 2024-08-09 15:54 | Outpatient (REF) | payer MEDICAID, SELFPAY ==
[2024-08-09 17:25] LABS: Free T4 (Free Thyroxine) 1.35 ng/dL (0.71-1.85); Thyroid Stimulating Hormone 0.54 uIU/mL (0.32-4.0)
== END 2024-08-09 15:55 | disposition home or self-care (01) ==
LOC: HO.LAB 15:54
PROVIDERS: PCP Family Medicine; Visit Provider Internal Medicine Endocrinology, Diabetes & Metabolism
DX: C73 Malignant neoplasm of thyroid gland (principal)
CPT/HCPCS: 36415; 84439; 84443

== ENCOUNTER 2024-08-10 12:56 | Outpatient (AMB) | payer MEDICAID, SELFPAY ==
--- NOTE | 2024-08-10 13:07 | A.OFFVIS_ITS ---
Vital Signs 08/10/24 13:08 Height 5 ft 9 in Weight 229 lb 4.492 oz BMI 33.9 BP 108/60 Blood Pressure Location Rt brachial Position Sitting Pulse 76 Pulse Source Pulse Oximeter Intake Visit Reasons: Lab results-lvm Intake Note: Patient present today for Thyroid Cancer & Labs Results. Data Control Assistant Required: No Accompanied by: Self / Same As Patient Allergies sulfamethoxazole [From Bactrim] Allergy (Verified 08/10/24 13:08) Rash trimethoprim [From Bactrim] Allergy (Verified 08/10/24 13:08) Rash HPI Comments Details: 29 YO Female with no significant PMHx who is seen in F/U for a thyroid nodule. She states in August 2022 she woke with tenderness in the neck and a lump on the R side. She presented to the ED and was found to have a thyroid nodule. She was referred to Endocrinology. She underwent a thyroid US 09/20/2022 which revealed a RLP 2.9 cm thyroid nodule. She underwent FNA biopsy of her right lower pole 2.9 cm thyroid nodule 02/11/2023 with cytology suspicious for malignancy (bethesda category V). She denies any compressive symptoms currently. She reports palpitations and anxiety, but otherwise denies any symptoms of hyper or hypothyroidism. She denies any personal history of head or neck irradiation. She denies any family history of thyroid cancer. Thyroid US: Right Thyroid Lobe: 5.4 x 2.2 x 2.3 cm, volume 14.1 mL. Parenchyma: The gland echotexture is homogeneous. Thyroid vascularity is normal. Left Thyroid Lobe: 5.4 x 1.4 x 1.6 cm, volume 6.2 mL. Parenchyma: The gland echotexture is homogeneous. Thyroid vascularity is normal. Isthmus: 0.3 cm in maximum AP dimension. Estimated total number of nodules greater than or equal to 1 cm: 1. Foreign Language Teacher nodules are described as follows: 1. Location: Lower pole right thyroid lobe. ?? ? Size: 2.9 x 2.2 x 2.6 cm, volume 8.5 mL. ?? ? Nodule characteristics: ?? ? Composition: Solid/almost completely solid (2). ?? ? Echogenicity: Hypoechoic (2). ?? ? Shape: Not taller than wide (0). ?? ? Margins: Smooth (0). ?? ? Echogenic Foci: None (0). ?? ? ACR TI-RADS total points: 4 ?? ? ACR TI-RADS category: 4 NODES: No lymphadenopathy is seen in the tissue surrounding the thyroid gland. 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 Patient subsequently underwent a completion thyroidectomy. She is currently on 150 mcg levothyroxine. Feeling fien without sx of hypothyroidism or hyperthyroidism. Currently post- on 150 mcg levothyroxine [facility] Medical History (Updated 05/10/23 @ 10:16 by Lou Shea DO) Vitamin D deficiency Thyroid cancer Thyroid nodule Surgical History History of lobectomy of thyroid Family History Father Diabetes mellitus Mother No known health problems Social History Alcohol intake: current Alcohol intake frequency: holidays/special occasions only Patient Tobacco Use Status: Never used Tobacco Physical Exam Const Other: Healing scar status post completion thyroidectomy. 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 She is currently on 150 ug of levothyroxine. Was taking extra 1/2 pill for 1 wk Plan is to continue the 150 ug of levothyroxine . Recheck TSH and free T4 in 4-6 wks Will have her follow up with Dr. Pena who has expertise in neck ultrasound Orders: Orders Thyroid Stimulating Hormone 6 Weeks C73 - Malignant neoplasm of thyroid gland Free T4 (Free Thyroxine) 6 Weeks C73 - Malignant neoplasm of thyroid gland Coding Level of Care Code Est Pt Level 3 (50066) Diagnoses Thyroid cancer C73
[2024-08-10 13:08] VITALS: BP 108/60; PULSE 76; BMI 33.9
== END 2024-08-10 13:16 | disposition home or self-care (01) ==
PROVIDERS: PCP Family Medicine; Visit Provider Internal Medicine Endocrinology, Diabetes & Metabolism
DX: C73 Malignant neoplasm of thyroid gland (principal)
CPT/HCPCS: 99213

== ENCOUNTER → 2024-08-10 12:56 | Outpatient (BNVA) | payer MEDICAID, SELFPAY | PROVIDERS: PCP Family Medicine; Visit Provider Internal Medicine Endocrinology, Diabetes & Metabolism | DX: C73 Malignant neoplasm of thyroid gland (principal) | CPT/HCPCS: 99212 ==

== ENCOUNTER 2024-10-17 06:29 | Outpatient (REF) | payer MEDICAID, SELFPAY ==
--- OUTSIDE RECORDS SUMMARY | 2024-10-17 06:31 | XMS_ITS ---
Author Name [facility] Organization Unknown History of Medication Use Medication Directions Dispensed Refills Start Date End Date Stat aspirin 81 mg tablet,delayed release TAKE 2 TABLETS BY MOUTH DAILY. active Vitamin 27 mg iron-0.8 mg tablet TAKE 1 TABLET BY MOUTH EVERY DAY FOR 90 DAYS active cholecalciferol (vitamin D3) 125 mcg (5,000 unit) capsule TAKE 1 CAPSULE BY MOUTH EVERY DAY DIRECTED active levothyroxine 150 mcg tablet TAKE 1 TABLET BY MOUTH DAILY active Allergies Allergen Reaction Severity Comment Documented Date Source Statu s BACTRIM ENS_AONECT Problems Problem Status Onset Date Problem Type Date of Resoluti on Source Bilateral carpal tunnel syndrome active 2024-05-22 ProblemAct ENS_AONECT
--- OUTSIDE RECORDS SUMMARY | 2024-10-17 06:31 | XMS_ITS | Clinical Summary ---
Author Organization [facility] Address [address] [place] [address] Care Team Providers Care Otr Flatbed Driver Name Role Phone Unavailable Primary Care Provider Unavailabl e Social History Tobacco Use Types Packs/Day Years Used Date Smoking Tobacco: Never Assessed Sex and Gender Information Value Date Recorded Sex Assigned at Not on file Gender Identity Not on file Sexual Orientation Not on file Plan of Treatment Health Maintenance Due Date Last Done Comments DTaP,Tdap,and Td Vaccines (1 - Tdap) 2013 Hepatitis B Vaccines (1 of 3 - 19+ 3-dose series) 2013 Cervical Cancer Screening: P ap Smear 2015 COVID-19 Vaccine ( - 2023-2 5 season) 2024 Influenza Vaccine (#1) 2024 HIB Vaccines Aged Out No longer eligi ble based on patient's age to complete this topic HPV Vaccines Aged Out No longer eligi ble based on patient's age to complete this topic Hepatitis A Vaccines Aged Out No long er eligible based on patient's age to complete this topic IPV Vaccines Aged Out No longer eligi ble based on patient's age to complete this topic MMR Vaccines Aged Out No longer eligi ble based on patient's age to complete this topic Meningococcal ACWY Vaccine Aged Out N o longer eligible based on patient's age to complete this topic Pneumococcal Vaccine: Pediat rics (0 to 5 Years) and At-Risk Patients (6 to 64 Years) Aged Out No longer eligible b ased on patient's age to complete this topic RSV Immunization Patients Un nicole 20 months Aged Out No longer eligible b ased on patient's age to complete this topic Varicella Vaccines Aged Out No longer eligible based on patient's age to complete this topic
[2024-10-17 07:49] LABS: Free T4 (Free Thyroxine) 2.04 ng/dL (0.71-1.85); Thyroid Stimulating Hormone 0.03 uIU/mL (0.32-4.0)
== END 2024-10-17 06:30 | disposition home or self-care (01) ==
LOC: HO.LAB 06:29
PROVIDERS: PCP Family Medicine; Visit Provider Internal Medicine Endocrinology, Diabetes & Metabolism
DX: C73 Malignant neoplasm of thyroid gland (principal)
CPT/HCPCS: 36415; 84439; 84443

== ENCOUNTER 2024-10-19 10:01 | Outpatient (AMB) | payer MEDICAID, SELFPAY ==
[2024-10-19 10:05] VITALS: BP 98/52; PULSE 63; BMI 36.0
--- NOTE | 2024-10-19 10:05 | MHC.OFFVIS ---
Vital Signs 10/19/24 10:05 Height 5 ft 9 in Weight 243 lb 13.3 oz BMI 36.0 BP 98/52 L Blood Pressure Location Lt brachial Position Sitting Pulse 63 Pulse Source Pulse Oximeter Intake Visit Reasons: Thyroid Cancer Intake Note: Patient present today for Thyroid Cancer office visit. 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 for a nodule with FNA cytology suspicious for follicular neoplasm ([place] category 4), which showed 13 X 8 X 7 mm unifocal 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 AJCC stage I (pT1a pN0 a). This is her 1st visit with me today, previously she was following with Dr. Medina initially and then Dr. Vail, last visit July 2024. History of PTC in detail 09/20/2022: Ultrasound thyroid showed a right inferior pole 2.9 cm solid, hypoechoic TR 4 nodule. 02/11/2023: FNA of the nodule came back as suspicious for follicular neoplasm [place] category 4. Afirma testing came back suspicious with 50% risk of malignancy. 03/30/2023: status post right lobectomy with Dr. 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 AJCC stage I (pT1a pN0 a). 10/27/2023: Labs showed TSH of 0.06, free T4 1.37, TG levels less than 0.1, TG antibody less than 1 10/17/2024: TSH 0.03 low with high free T4 2.04 I do not see any follow up imaging ultrasounds of the neck. No personal history of head or neck radiation. No family history of thyroid cancer or thyroid disease. Biotin: None history: First , July 22 2024 gave to healthy baby girl Not currently , not planning to. Currently on levothyroxine 150 mcg daily, good administration and adherence, prior to she was on a dose of 137 mcg of levothyroxine. No compressive symptoms No symptoms of hypo or hyperthyroidism. Physical exam General: sitting comfortably in no acute distress HEENT: normocephalic/atraumatic, Neck: supple, symmetrical, no palpable masses or lymph nodes. Cardiac: normal heart sounds Pulm: normal breath sounds B/L, no added breath sounds Abd: not distended, no tenderness Extremities: no edema, no signs of myxedema Laboratory Tests 10/27/23 15:28 Thyroglobulin <0.1 Laboratory Tests 09/20/22 11/12/22 05/10/23 16:18 14:00 11:45 TSH 1.05 1.25 2.00 Free T4 1.05 0.81 Thyroglobulin Thyroglobulin Antibody 10/27/23 03/02/24 06/19/24 15:28 15:03 08:38 TSH 0.06 L 1.15 1.25 Free T4 1.37 1.04 1.12 Thyroglobulin <0.1 Thyroglobulin Antibody <1 08/09/24 10/17/24 16:04 06:41 TSH 0.54 0.03 L Free T4 1.35 2.04 H Thyroglobulin Thyroglobulin Antibody EXAMINATION: US THYROID 09/20/22 CLINICAL INFORMATION: COMPARISON: None TECHNIQUE: Linear transducer grayscale and color Doppler examination with attention to the region of the thyroid. FINDINGS: SIZE: Measurements of the thyroid lobes and nodules are given in sagittal, anteroposterior and transverse dimensions respectively. Right Thyroid Lobe: 5.4 x 2.2 x 2.3 cm, volume 14.1 mL. Parenchyma: The gland echotexture is homogeneous. Thyroid vascularity is normal. Left Thyroid Lobe: 5.4 x 1.4 x 1.6 cm, volume 6.2 mL. Parenchyma: The gland echotexture is homogeneous. Thyroid vascularity is normal. Isthmus: 0.3 cm in maximum AP dimension. Estimated total number of nodules greater than or equal to 1 cm: 1. Alodize Machine Operator nodules are described as follows: 1. Location: Lower pole right thyroid lobe. Size: 2.9 x 2.2 x 2.6 cm, volume 8.5 mL. Nodule characteristics: Composition: Solid/almost completely solid (2). Echogenicity: Hypoechoic (2). Shape: Not taller than wide (0). Margins: Smooth (0). Echogenic Foci: None (0). ACR TI-RADS total points: 4 ACR TI-RADS category: 4 NODES: No lymphadenopathy is seen in the tissue surrounding the thyroid gland. US/US thyroid IMPRESSION: A dominant 2.9 cm ACR TI-RADS category 4 nodule in the inferior right thyroid lobe . Given its size and ACR TI-RADS category, this nodule meets the ACR criteria recommendation for FNA. [facility] Medical History (Updated 10/19/24 @ 10:56 by Thania Pena MD) Hypothyroidism delivery delivered Vitamin D deficiency Thyroid cancer Thyroid nodule Surgical History History of lobectomy of thyroid Family History Father Diabetes mellitus Mother No known health problems Social History Alcohol intake: current Alcohol intake frequency: holidays/special occasions only Patient Tobacco Use Status: Never used Tobacco Physical Exam Vital Signs: Last Vital Signs Pulse 63 10/19/24 10:05 BP 98/52 L 10/19/24 10:05 BMI result Body Mass Index 36.0 Assessment & Plan Assessment & Plan (1) Thyroid cancer: Code(s): C73 - Malignant neoplasm of thyroid gland Category: Medical Plan: 29-year-old female coming in today for 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 for a nodule with FNA cytology suspicious for follicular neoplasm ([place] category 4), which showed 13 X 8 X 7 mm unifocal 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 AJCC stage I (pT1a pN0 a). Based on the unstimulated thyroglobulin levels from October 2023 which were undetectable with negative TG antibody, she classified as excellent response to therapy per JOY guidelines however no ultrasound imaging of the neck in the chart. We will obtain this. It has also been a year since her thyroglobulin markers were checked, hence I have asked her to repeat these. Her most recent blood work from 10/17/2024 showed TSH low at 0.03, free T4 of 2.04, given undetectable thyroglobulin levels her goal TSH for the 1st year after surgery would have been between 0.1-0.5, and now that she is over a year out of surgery depending on ultrasound findings and TG levels we will determine what her goal TSH would be like however currently she based on TSH she likely needs some dose reduction. Plan: -ordered TSH, free T4, TG and TG antibody levels -reduce levothyroxine to 137 mcg daily from 150 mcg daily -repeat another set of blood work in 6 weeks -ordered ultrasound of the neck -follow up in 8 weeks to discuss results (2) Hypothyroidism: Code(s): E03.9 - Hypothyroidism, unspecified Category: Medical Qualifiers: Hypothyroidism type: postoperative Qualified Code(s): E89.0 - Postprocedural hypothyroidism Plan: Based on the unstimulated thyroglobulin levels from October 2023 which were undetectable with negative TG antibody, she classified as excellent response to therapy per JOY guidelines however no ultrasound imaging of the neck in the chart. We will obtain this. It has also been a year since her thyroglobulin markers were checked, hence I have asked her to repeat these. Her most recent blood work from 10/17/2024 showed TSH low at 0.03, free T4 of 2.04, given undetectable thyroglobulin levels her goal TSH for the 1st year after surgery would have been between 0.1-0.5, and now that she is over a year out of surgery depending on ultrasound findings and TG levels we will determine what her goal TSH would be like however currently she based on TSH she likely needs some dose reduction. Plan: -ordered TSH, free T4, TG and TG antibody levels -reduce levothyroxine to 137 mcg daily from 150 mcg daily -repeat another set of blood work in 6 weeks Plan I spent 45 minutes in reviewing the record, seeing the patient and documenting in the medical record. Orders: Orders US soft tiss head and/or neck Today C73 - Malignant neoplasm of thyroid gland Triiodothyronine T3 Total Today C73 - Malignant neoplasm of thyroid gland, E03.9 - Hypothyroidism, unspecified Thyroid Stimulating Hormone Today C73 - Malignant neoplasm of thyroid gland, E03.9 - Hypothyroidism, unspecified Free T4 (Free Thyroxine) Today C73 - Malignant neoplasm of thyroid gland, E03.9 - Hypothyroidism, unspecified Thyroglobulin Today C73 - Malignant neoplasm of thyroid gland, E03.9 - Hypothyroidism, unspecified Thyroglobulin Antibodies Today C73 - Malignant neoplasm of thyroid gland, E03.9 - Hypothyroidism, unspecified Thyroglobulin Tumor Marker Today C73 - Malignant neoplasm of thyroid gland, E03.9 - Hypothyroidism, unspecified Medications: New levothyroxine 137 mcg PO DAILY 90 tabs 3RF Discontinued levothyroxine Discontinued Reason: Patient Completed Course 150 mcg PO DAILY 90 tabs 1RF Patient Instructions: Reduce levothyroxine to 137 mcg daily Do a set of blood work today Repeat another set of blood work in 6 weeks Do neck US , someone will call you to schedule this Follow up in 8 weeks with me to discuss results Coding Level of Care Code Est Pt Level 5 (63199) Complex EM visit Add On G2211 Diagnoses Thyroid cancer C73 Postoperative hypothyroidism E89.0 Hypothyroidism type: postoperative Time Spent (min) 45
--- OUTSIDE RECORDS SUMMARY | 2024-10-19 13:09 | XMS_ITS | Clinical Summary ---
Author Organization [facility] Address [address] [place] [address] Care Team Providers Care Juice Weigher Name Role Phone Unavailable Primary Care Provider [...]
== END 2024-10-19 10:49 | disposition home or self-care (01) ==
PROVIDERS: PCP Family Medicine; Visit Provider Student in an Organized Health Care Education/Training Program
DX: C73 Malignant neoplasm of thyroid gland (principal); E89.0 Postprocedural hypothyroidism
CPT/HCPCS: 99215

== ENCOUNTER 2024-10-19 10:01 | Outpatient (REF) | payer MEDICAID, SELFPAY ==
[2024-10-19 12:56] LABS: Free T4 (Free Thyroxine) 1.36 ng/dL (0.71-1.85); Thyroid Stimulating Hormone 0.02 uIU/mL (0.32-4.0)
--- OUTSIDE RECORDS SUMMARY | 2024-10-19 14:37 | XMS_ITS | Clinical Summary ---
Author Organization [facility] Address [address] [place] [address] Care Team Providers Care Condenser Tube Tender Name Role Phone Unavailable Primary Care Provider [...]
[2024-10-20 07:29] LABS: Triiodothyronine T3 Total 107 ng/dL (76-181)
[2024-10-20 09:18] LABS: Thyroglobulin <0.1 ng/mL; Thyroglobulin Antibodies <1 IU/mL (< or = 1)
[2024-10-23 22:13] LABS: Thyroglobulin Antibody <1 IU/mL (<=1); Thyroglobulin Level <0.1 ng/mL
== END 2024-10-19 10:02 | disposition home or self-care (01) ==
LOC: HO.LAB 10:01
PROVIDERS: PCP Family Medicine; Visit Provider Student in an Organized Health Care Education/Training Program
DX: C73 Malignant neoplasm of thyroid gland (principal); E89.0 Postprocedural hypothyroidism
CPT/HCPCS: 36415; 84432; 84439; 84443; 84480; 86800; 99212

== ENCOUNTER 2024-11-02 15:04 | Outpatient (REF) | payer MEDICAID, SELFPAY ==
--- NOTE | ~2024-11-02 | US_ITS ---
CLINICAL HISTORY: C73 - Malignant neoplasm of thyroid gland Limited soft tissue ultrasound Indication: Thyroid malignancy postoperative. Comparison: 09/20/2022 Findings: Along the right level 2 neck, there is a 1.2 x 0.5 x 0.6 cm soft tissue nodule with no definite vascular/fatty hilum. A normal-appearing borderline prominent level 2 left-sided lymph node is noted, measuring 1.1 x 0.6 x 0.8 cm. Impression: Possible abnormal right-sided lymph node and borderline prominent left-sided lymph node. Close interval follow-up given history. This document has been electronically signed by: Camden Rowell MD on 11/03/2024 09:51:34
--- OUTSIDE RECORDS SUMMARY | 2024-11-02 15:07 | XMS_ITS | Clinical Summary ---
Author Organization [facility] Address [address] [place] [address] Care Team Providers Care Sql Ssrs Developer Name Role Phone Unavailable Primary Care Provider Unavailabl e Social History Tobacco Use Types Packs/Day Years Used Date Smoking Tobacco: Never Assessed Comments Unknown Sex and Gender Information Value Date Recorded Sex Assigned at Not on file Legal Sex Female 4:29 AM EST Gender Identity Not on file Sexual Orientation Not on file Plan of Treatment Health Maintenance Due Date Last Done Comments DTaP,Tdap,and Td Vaccines (1 - Tdap) 2013 Hepatitis B Vaccines (1 of 3 - 19+ 3-dose series) 2013 Cervical Cancer Screening: P ap Smear 2015 COVID-19 Vaccine (2023-2 5 season) 2024 Influenza Vaccine (#1) 2024 [...]
== END 2024-11-02 15:05 | disposition home or self-care (01) ==
LOC: HO.US 15:04
PROVIDERS: PCP Family Medicine; Visit Provider Student in an Organized Health Care Education/Training Program
DX: C73 Malignant neoplasm of thyroid gland (principal)
CPT/HCPCS: 76536

== ENCOUNTER → 2024-11-02 15:05 | Outpatient (BNV) | payer MEDICAID, SELFPAY | PROVIDERS: PCP Family Medicine; Visit Provider Radiology Vascular & Interventional Radiology | DX: C73 Malignant neoplasm of thyroid gland (principal) | CPT/HCPCS: 76536 ==

== ENCOUNTER 2024-12-29 08:23 | Outpatient (REF) | payer MEDICAID, SELFPAY ==
--- OUTSIDE RECORDS SUMMARY | 2024-12-29 08:28 | XMS_ITS | Clinical Summary ---
Author Organization [facility] Address [address] [place] [address] Care Team Providers Care Credit Control Assistant Name Role Phone Unavailable Primary Care Provider [...] Vaccine (2023-2 5 season) 2024 Influenza Vaccine (Season Ended) 2025 HIB Vaccines Aged Out No longer eligi [...] patient's age to complete this topic Meningococcal B Vaccine Aged Out No l onger eligible based on patient's age to complete [...]
[2024-12-29 09:11] LABS: Free T4 (Free Thyroxine) 1.38 ng/dL (0.71-1.85); Thyroid Stimulating Hormone 0.21 uIU/mL (0.32-4.0)
== END 2024-12-29 08:24 | disposition home or self-care (01) ==
LOC: HO.LAB 08:23
PROVIDERS: PCP Family Medicine; Visit Provider Student in an Organized Health Care Education/Training Program
DX: C73 Malignant neoplasm of thyroid gland (principal); E89.0 Postprocedural hypothyroidism
CPT/HCPCS: 36415; 84439; 84443

== ENCOUNTER 2025-01-01 16:03 | Outpatient (AMB) | payer MEDICAID, SELFPAY ==
--- NOTE | 2025-01-01 16:07 | A.OFFVIS_ITS ---
Vital Signs 3 01/01/25 16:08 Height 5 ft 9 in Weight 248 lb 14.43 oz BMI 36.8 BP 100/50 L Blood Pressure Location Rt brachial Position Sitting Pulse 64 Pulse Source Pulse Oximeter Pulse Oximetry (%) 97 Oxygen Delivery Method Room Air Intake Visit Reasons: Thyroid cancer Intake Note: Patient present today for Thyroid Cancer follow up. 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 AJCC stage I (pT1a pN0 a). History of PTC in detail 09/20/2022: Ultrasound thyroid showed a right inferior pole 2.9 cm solid, hypoechoic TR 4 nodule. 02/11/2023: FNA of the nodule came back as suspicious for follicular neoplasm [place] category 4. Afirma testing came back suspicious with 50% risk of malignancy. 03/30/2023: status post right lobectomy with Dr. 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 Danyelle Sheppard at [facility] with pathology showing 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 AJCC stage I (pT1a pN0 a). 10/27/2023: Labs showed TSH of 0.06, free T4 1.37, TG levels less than 0.1, TG antibody less than 1 10/17/2024: TSH 0.03 low with high free T4 2.04 = No personal history of head or neck radiation. No family history of thyroid cancer or thyroid disease. Biotin: None history: First , July 22 2024 gave to healthy baby girl Not currently , not planning to. Interval history 10/19/2024: TSH 0.02, free T4 1.36, total T3 107, TG less than 0.1, TG antibody less than 1 10/19/2024: Dose of levothyroxine reduced to 137 mcg daily 11/03/2024: Ultrasound of the neck does not show any abnormal lymph nodes, they did point out a right neck level 2 1.280.5 cm lymph node without a clear hilum, it is still oval-shaped, does not look particularly abnormal to me. 12/29/2024: TSH 0.21, free T4 1.38 Currently on levothyroxine 137 mcg daily, good administration and adherence, No compressive symptoms No symptoms of hypo or hyperthyroidism. Physical exam General: sitting comfortably in no acute distress HEENT: normocephalic/atraumatic, Neck: supple, symmetrical, no palpable masses or lymph nodes. Cardiac: normal heart sounds Pulm: normal breath sounds B/L, no added breath sounds Abd: not distended, no tenderness Extremities: no edema, no signs of myxedema Laboratory Tests 10/27/23 15:28 Thyroglobulin <0.1 Laboratory Tests 09/20/22 11/12/22 05/10/23 16:18 14:00 11:45 TSH 1.05 1.25 2.00 Free T4 1.05 0.81 Thyroglobulin Thyroglobulin Antibody 10/27/23 03/02/24 06/19/24 15:28 15:03 08:38 TSH 0.06 L 1.15 1.25 Free T4 1.37 1.04 1.12 Thyroglobulin <0.1 Thyroglobulin Antibody <1 08/09/24 10/17/24 16:04 06:41 TSH 0.54 0.03 L Free T4 1.35 2.04 H Thyroglobulin Thyroglobulin Antibody Laboratory Tests 10/17/24 10/19/24 12/29/24 06:41 11:12 08:30 TSH 0.03 L 0.02 L 0.21 L Free T4 2.04 H 1.36 1.38 Total T3 107 Thyroglobulin <0.1 Thyroglobulin Antibody <1 Limited soft tissue ultrasound 11/03/24 Indication: Thyroid malignancy postoperative. Comparison: 09/20/2022 Findings: Along the right level 2 neck, there is a 1.2 x 0.5 x 0.6 cm soft tissue nodule with no definite vascular/fatty hilum. A normal-appearing borderline prominent level 2 left-sided lymph node is noted, measuring 1.1 x 0.6 x 0.8 cm. Impression: Possible abnormal right-sided lymph node and borderline prominent left-sided lymph node. Close interval follow-up given history. This document has been electronically signed by: Camden Rowell MD on 11/03/2024 09:51:34 EXAMINATION: US THYROID 09/20/22 CLINICAL INFORMATION: COMPARISON: None TECHNIQUE: Linear transducer grayscale and color Doppler examination with attention to the region of the thyroid. FINDINGS: SIZE: Measurements of the thyroid lobes and nodules are given in sagittal, anteroposterior and transverse dimensions respectively. Right Thyroid Lobe: 5.4 x 2.2 x 2.3 cm, volume 14.1 mL. Parenchyma: The gland echotexture is homogeneous. Thyroid vascularity is normal. Left Thyroid Lobe: 5.4 x 1.4 x 1.6 cm, volume 6.2 mL. Parenchyma: The gland echotexture is homogeneous. Thyroid vascularity is normal. Isthmus: 0.3 cm in maximum AP dimension. Estimated total number of nodules greater than or equal to 1 cm: 1. Manager Math nodules are described as follows: 1. Location: Lower pole right thyroid lobe. Size: 2.9 x 2.2 x 2.6 cm, volume 8.5 mL. Nodule characteristics: Composition: Solid/almost completely solid (2). Echogenicity: Hypoechoic (2). Shape: Not taller than wide (0). Margins: Smooth (0). Echogenic Foci: None (0). ACR TI-RADS total points: 4 ACR TI-RADS category: 4 NODES: No lymphadenopathy is seen in the tissue surrounding the thyroid gland. US/US thyroid IMPRESSION: A dominant 2.9 cm ACR TI-RADS category 4 nodule in the inferior right thyroid lobe . Given its size and ACR TI-RADS category, this nodule meets the ACR criteria recommendation for FNA. [facility] Medical History (Updated 10/19/24 @ 10:56 by Thania Pena MD) Hypothyroidism delivery delivered Vitamin D deficiency Thyroid cancer Thyroid nodule Surgical History History of lobectomy of thyroid Family History Father Diabetes mellitus Mother No known health problems Social History Alcohol intake: current Alcohol intake frequency: holidays/special occasions only Patient Tobacco Use Status: Never used Tobacco Assessment & Plan Assessment & Plan (1) Thyroid cancer: Code(s): C73 - Malignant neoplasm of thyroid gland Category: Medical Plan: 29-year-old female coming in today for 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 for a nodule with FNA cytology suspicious for follicular neoplasm ([place] category 4), which showed 13 X 8 X 7 mm unifocal 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 AJCC stage I (pT1a pN0 a). Based on the unstimulated thyroglobulin levels from September 2024 which were undetectable with negative TG antibody, and relatively unremarkable ultrasound of the neck from October 2024 she classified as excellent response to therapy per JOY guidelines given it has been over a year since surgery, we can liberalize her TSH goal to 0.5-2. Most recent TSH from December 2024 at 0.21. Plan: -ordered TSH, free T4, to be done in 6 weeks s -reduce levothyroxine to 125 mcg from 137 mcg -next ultrasound of the neck would be due October 2025 -follow up in 6 months (2) Hypothyroidism: Code(s): E03.9 - Hypothyroidism, unspecified Category: Medical Qualifiers: Hypothyroidism type: postoperative Qualified Code(s): E89.0 - Postprocedural hypothyroidism Plan: Based on the unstimulated thyroglobulin levels from September 2024 which were undetectable with negative TG antibody, and relatively unremarkable ultrasound of the neck from October 2024 she classified as excellent response to therapy per JOY guidelines given it has been over a year since surgery, we can liberalize her TSH goal to 0.5-2. Most recent TSH from December 2024 at 0.21. Plan: -ordered TSH, free T4, to be done in 6 weeks s -reduce levothyroxine to 125 mcg from 137 mcg Plan I spent 30 minutes in reviewing the record, seeing the patient and documenting in the medical record. Orders: Orders 2 Thyroid Stimulating Hormone 6 Weeks C73 - Malignant neoplasm of thyroid gland, E89.0 - Postprocedural hypothyroidism Free T4 (Free Thyroxine) 6 Weeks C73 - Malignant neoplasm of thyroid gland, E89.0 - Postprocedural hypothyroidism Medications: New 2 levothyroxine 125 mcg PO DAILY 90 tabs 3RF Discontinued 2 levothyroxine Discontinued Reason: Doctor's Order 137 mcg PO DAILY 90 tabs 3RF Patient Instructions: Reduce levothyroxine to 125 mcg daily Do blood work in 6 weeks , we will call with results and instructions Follow up in 6 months Coding Level of Care Code Est Pt Level 4 (00455) Complex EM visit Add On G2211 Diagnoses Thyroid cancer C73 Postoperative hypothyroidism E89.0 Hypothyroidism type: postoperative Time Spent (min) 30
[2025-01-01 16:08] VITALS: BP 100/50; PULSE 64; O2SAT 97; BMI 36.8
--- OUTSIDE RECORDS SUMMARY | 2025-01-01 18:18 | XMS_ITS | Clinical Summary ---
Author Organization [facility] Address [address] [place] [address] Care Team Providers Care Profiler Name Role Phone Unavailable Primary Care Provider [...]
== END 2025-01-01 16:22 | disposition home or self-care (01) ==
LOC: HO.ENCR 16:03
PROVIDERS: PCP Family Medicine; Visit Provider Student in an Organized Health Care Education/Training Program
DX: C73 Malignant neoplasm of thyroid gland (principal); E89.0 Postprocedural hypothyroidism
CPT/HCPCS: 99214

== ENCOUNTER → 2025-01-01 16:03 | Outpatient (BNVA) | payer MEDICAID, SELFPAY | PROVIDERS: PCP Family Medicine; Visit Provider Student in an Organized Health Care Education/Training Program | DX: E89.0 Postprocedural hypothyroidism (principal); Z85.850 Personal history of malignant neoplasm of thyroid | CPT/HCPCS: 99212 ==

== ENCOUNTER 2025-02-22 07:23 | Outpatient (REF) | payer MEDICAID, SELFPAY ==
[2025-02-22 08:56] LABS: Thyroid Stimulating Hormone 2.97 uIU/mL (0.32-4.0)
== END 2025-02-22 07:24 | disposition home or self-care (01) ==
LOC: HO.LAB 07:23
PROVIDERS: PCP Family Medicine; Visit Provider Student in an Organized Health Care Education/Training Program
DX: C73 Malignant neoplasm of thyroid gland (principal); E89.0 Postprocedural hypothyroidism
CPT/HCPCS: 36415; 84439; 84443

== ENCOUNTER 2025-08-28 11:31 | Outpatient (REF) | payer MEDICAID, SELFPAY ==
[2025-08-28 13:20] LABS: Free T4 (Free Thyroxine) 1.24 ng/dL (0.71-1.85); Thyroid Stimulating Hormone 0.18 uIU/mL (0.32-4.0)
== END 2025-08-28 11:32 | disposition home or self-care (01) ==
LOC: HO.LAB 11:31
PROVIDERS: PCP Family Medicine; Visit Provider Student in an Organized Health Care Education/Training Program
DX: C73 Malignant neoplasm of thyroid gland (principal); E89.0 Postprocedural hypothyroidism
CPT/HCPCS: 36415; 84432; 84439; 84443; 86800

== ENCOUNTER 2025-09-17 14:28 | Outpatient (AMB) | payer MEDICAID, SELFPAY ==
--- NOTE | 2025-09-17 14:30 | MHC.OFFVIS ---
Vital Signs 09/17/25 14:32 BMI Reason not done Patient refused/unable BP 98/54 L Blood Pressure Location Lt brachial Position Sitting Pulse 76 Pulse Source Pulse Oximeter Pulse Oximetry (%) 96 Oxygen Delivery Method Room Air Intake Visit Reasons: Thyroid Cancer - Dr. Pena PT. Intake Note: Patient present today for Thyroid Cancer follow up. 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 for a nodule with FNA cytology suspicious for follicular neoplasm ([employer] category 4), which showed 13 X 8 X 7 mm unifocal 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 AJCC stage I (pT1a pN0 a). The patient last saw Dr. Pena on 01/01/2025 History of PTC in detail 09/20/2022: Ultrasound thyroid showed a right inferior pole 2.9 cm solid, hypoechoic TR 4 nodule. 02/11/2023: FNA of the nodule came back as suspicious for follicular neoplasm [employer] category 4. Afirma testing came back suspicious with 50% risk of malignancy. 03/30/2023: status post right lobectomy with Dr. 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 Danyelle Sheppard at [facility] with pathology showing 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 AJCC stage I (pT1a pN0 a). 10/27/2023: Labs showed TSH of 0.06, free T4 1.37, TG levels less than 0.1, TG antibody less than 1 10/17/2024: TSH 0.03 low with high free T4 2.04 = No personal history of head or neck radiation. No family history of thyroid cancer or thyroid disease. Biotin: None history: First , July 22 2024 gave to healthy baby girl Not currently , not planning to. Interval history 10/19/2024: TSH 0.02, free T4 1.36, total T3 107, TG less than 0.1, TG antibody less than 1 10/19/2024: Dose of levothyroxine reduced to 125 mcg daily the patient continues to take 150 mcg 11/03/2024: Ultrasound of the neck does not show any abnormal lymph nodes, they did point out a right neck level 2 1.280.5 cm lymph node without a clear hilum, it is still oval-shaped, does not look particularly abnormal to me. 12/29/2024: TSH 0.21, free T4 1.38 Currently on levothyroxine 150 mcg daily, good administration and adherence, No compressive symptoms No symptoms of hypo or hyperthyroidism. Laboratory Tests 10/27/23 15:28 Thyroglobulin <0.1 Laboratory Tests 09/20/22 11/12/22 05/10/23 16:18 14:00 11:45 TSH 1.05 1.25 2.00 Free T4 1.05 0.81 Thyroglobulin Thyroglobulin Antibody 10/27/23 03/02/24 06/19/24 15:28 15:03 08:38 TSH 0.06 L 1.15 1.25 Free T4 1.37 1.04 1.12 Thyroglobulin <0.1 Thyroglobulin Antibody <1 08/09/24 10/17/24 16:04 06:41 TSH 0.54 0.03 L Free T4 1.35 2.04 H Thyroglobulin Thyroglobulin Antibody Laboratory Tests 10/17/24 10/19/24 12/29/24 06:41 11:12 08:30 TSH 0.03 L 0.02 L 0.21 L Free T4 2.04 H 1.36 1.38 Total T3 107 Thyroglobulin <0.1 Thyroglobulin Antibody <1 Limited soft tissue ultrasound 11/03/24 Indication: Thyroid malignancy postoperative. Comparison: 09/20/2022 Findings: Along the right level 2 neck, there is a 1.2 x 0.5 x 0.6 cm soft tissue nodule with no definite vascular/fatty hilum. A normal-appearing borderline prominent level 2 left-sided lymph node is noted, measuring 1.1 x 0.6 x 0.8 cm. Impression: Possible abnormal right-sided lymph node and borderline prominent left-sided lymph node. Close interval follow-up given history. This document has been electronically signed by: Camden Rowell MD on 11/03/2024 09:51:34 EXAMINATION: US THYROID 09/20/22 CLINICAL INFORMATION: COMPARISON: None TECHNIQUE: Linear transducer grayscale and color Doppler examination with attention to the region of the thyroid. FINDINGS: SIZE: Measurements of the thyroid lobes and nodules are given in sagittal, anteroposterior and transverse dimensions respectively. Right Thyroid Lobe: 5.4 x 2.2 x 2.3 cm, volume 14.1 mL. Parenchyma: The gland echotexture is homogeneous. Thyroid vascularity is normal. Left Thyroid Lobe: 5.4 x 1.4 x 1.6 cm, volume 6.2 mL. Parenchyma: The gland echotexture is homogeneous. Thyroid vascularity is normal. Isthmus: 0.3 cm in maximum AP dimension. Estimated total number of nodules greater than or equal to 1 cm: 1. Benefits Consulting Analyst nodules are described as follows: 1. Location: Lower pole right thyroid lobe. Size: 2.9 x 2.2 x 2.6 cm, volume 8.5 mL. Nodule characteristics: Composition: Solid/almost completely solid (2). Echogenicity: Hypoechoic (2). Shape: Not taller than wide (0). Margins: Smooth (0). Echogenic Foci: None (0). ACR TI-RADS total points: 4 ACR TI-RADS category: 4 NODES: No lymphadenopathy is seen in the tissue surrounding the thyroid gland. US/US thyroid IMPRESSION: A dominant 2.9 cm ACR TI-RADS category 4 nodule in the inferior right thyroid lobe . Given its size and ACR TI-RADS category, this nodule meets the ACR criteria recommendation for FNA. [facility] Medical History Hypothyroidism delivery delivered Vitamin D deficiency Thyroid cancer Thyroid nodule Surgical History History of lobectomy of thyroid Family History Father Diabetes mellitus Mother No known health problems Social History Alcohol intake: current Alcohol intake frequency: holidays/special occasions only Patient Tobacco Use Status: Never used Tobacco Physical Exam Vital Signs: Last Vital Signs Pulse 76 09/17/25 14:32 BP 98/54 L 09/17/25 14:32 Pulse Ox 96 09/17/25 14:32 Oxygen Delivery Method Room Air 09/17/25 14:32 Const Other: Healed scar status post thyroidectomy. There was a absence of palpable adenopathy in the neck Assessment & Plan Assessment & Plan (1) Thyroid cancer: Code(s): C73 - Malignant neoplasm of thyroid gland Category: Medical Plan: This is a 28-year-old female with a history of minimally invasive Hurthle cell carcinoma with no lymphatic, angioinvasion or lymph node involvement. She is currently on 125 ug of levothyroxine. Appears to be slightly over replaced on 150 ug . Thyroglobulins been undetectable and neck ultrasounds have been without the presence of persistence of cancer Plan is to decrease levothyroxine to 112 mcg . Recheck TSH and free T4 in 4-6 wks Will have her follow up with Dr. Pena Orders: Orders Free T4 (Free Thyroxine) 6 Weeks C73 - Malignant neoplasm of thyroid gland Thyroid Stimulating Hormone 6 Weeks C73 - Malignant neoplasm of thyroid gland Medications: New levothyroxine (Levo-T) 137 mcg PO DAILY 30 tabs 5RF Discontinued levothyroxine Discontinued Reason: Doctor's Order 125 mcg PO DAILY 90 tabs 3RF Coding Level of Care Code Est Pt Level 3 (00126) Diagnoses Thyroid cancer C73
[2025-09-17 14:32] VITALS: BP 98/54; PULSE 76; O2SAT 96
--- OUTSIDE RECORDS SUMMARY | 2025-09-17 16:50 | XMS_ITS ---
Author Name [facility] Organization Unknown History of Medication Use Medication Directions Dispensed Refills Start Date End Date Stat us aspirin 81 mg tablet,delayed release TAKE 2 TABLETS BY MOUTH DAILY. active cholecalciferol (vitamin D3) 125 mcg (5,000 unit) capsule TAKE 1 CAPSULE BY MOUTH EVERY DAY DIRECTED active ibuprofen 600 mg tablet TAKE 1 TABLET BY MOUTH EVERY 6 HOURS NEEDED FOR PAIN FOR 14 DAYS active levothyroxine 137 mcg tablet TAKE 1 TABLET BY MOUTH DAILY active levothyroxine 150 mcg tablet TAKE 1 TABLET BY MOUTH DAILY active oxycodone 5 mg tablet TAKE 1 TABLET BY MOUTH EVERY 6 HOURS NEEDED FOR PAIN FOR 5 DAYS active Vitamin 27 mg iron-0.8 mg tablet TAKE 1 TABLET BY MOUTH EVERY DAY FOR 90 DAYS active Allergies Allergen Reaction Severity Comment Documented Date Source Statu s BACTRIM ENS_AONECT Problems Problem Status Onset Date Problem Type Date of Resoluti on Source Bilateral carpal tunnel syndrome active 2024-05-22 ProblemAct ENS_AONECT Encounters Encounter Type Encounter Reason Primary Diagnosis Location Date Ambulatory [facility] 05/23/2024 Ambulatory [facility] 05/18/2024 Ambulatory [facility] 05/18/2024 Ambulatory [facility] [place] 05/17/2024 Ambulatory [facility] [place] 04/28/2024 Ambulatory [facility] 04/28/2024 Ambulatory [facility] [place] 04/28/2024 Ambulatory [facility] [place] 04/28/2024
--- OUTSIDE RECORDS SUMMARY | 2025-09-17 16:50 | XMS_ITS | Clinical Summary ---
Author Organization [facility] Address [address] [place] [address] Care Team Providers Care Distribution Transformer Assembler Name Role Phone Unavailable Primary Care Provider [...] Cervical Cancer Screening: P ap Smear 2015 HPV Vaccines (1 - 3-dose SCD M series) 2021 Depression Screening 09/20/2024 COVID-19 Vaccine (1 - 2024-2 6 season) 2025 Influenza Vaccine (#1) 2025 RSV Immunization Adult Patie nts (1 - 1-dose 75+ series) 2069 HIB Vaccines Aged Out No longer eligi [...] 5 Years) and At-Risk Patients (6 to 49 Years) Aged Out No longer eligible b ased on patient's age to complete this topic RSV Immunization Patients Un nicole 20 months Aged Out No longer eligible b ased on patient's age to complete this topic Varicella Vaccines Aged Out No longer eligible based on patient's age to complete this topic
--- OUTSIDE RECORDS SUMMARY | 2025-09-17 16:50 | XMS_ITS | Clinical Summary ---
Author Organization [facility] Address [address] [facility] [address] [place] [address] Phone Care Team Providers Care Mine Technician Name Role Phone Corina Delacruz MD Primary Care Provider + Allergies Active Allergy Reactions Criticality Noted Date Comments Sulfamethoxazole-Trimethoprim Hives 2023 Medications levothyroxine (SYNTHROID, LEVOTHROID) 150 MCG tablet Take 150 mcg by mouth every morning. 10/28/2023 Active VITAMIN 27 mg iron- 0.8 mg Take 1 tablet by mouth every morning. 11/12/2023 Active cholecalciferol (VITAMIN D3) 5,000 unit capsule Take 5,000 Units by mouth daily. 11/12/2023 Active acetaminophen (TYLENOL) 325 mg tablet Take 3 tablets (975 mg total) by mouth every 6 (six) hours as needed. 07/26/2024 Active ibuprofen (ADVIL,MOTRIN) 600 MG tablet Take 1 tablet (600 mg total) by mouth every 6 (six) hours as needed. 30 tablet 1 07/26/2024 Active Active Problems Problem Noted Date Diagnosed Date Anxiety and depression 12/08/2023 Overview (12/08/2023): Patient is not on medication and does not regularly see a therapist. Feels stable, denies SI/SH. Assessment & Plan (07/22/2024 7:34 AM EDT): Close pp follow up Disorder of thyroid 12/08/2023 Overview (01/24/2024): Thyroidectomy 08/18/23 at [facility]. Patient sees Dr. Vail and [facility]. Patient takes Levothyroxine 137 mcg daily. TSH ordered with intake labs. 01/24/[address] Vail adjusted med and she is now taking 150 mcg Repeat TSH ordered -Newly diagnosed (TSH>4.0): TSH q 4 wks until 20wks, then once in third trimester or 4 weeks after any med dose change -Pre-existing hypothyroidism oTSH at conf. of preg 0.78 o TSH 4 wks later o TSH q trimester o TSH 4 wks after any med dose change -With treatment, goal of TSH is <2.5 Treating subclinical hypothyroidism prior to or at start of (TSH 2.5- 4) for someone without prior diagnosis of hypothyroidism, can be individualized based on other clinical factors (infertility, miscarriage history, and TPO antibodies) Assessment & Plan (07/22/2024 7:35 AM EDT): Takes levothyroxine 150mcg Assessment & Plan (02/21/2024 9:48 AM EDT): Continues on levothyroxine 150mcg. Has next follow up with endocrine on 03/06/24 per pt. Assessment & Plan (01/24/2024 11:18 AM EDT): TSH Date Value Ref Range Status 12/27/2023 0.78 0.27 - 4.20 uIU/mL Final 01/24/[address] Vail adjusted med and she is now taking 150 mcg Repeat TSH ordered Assessment & Plan (12/27/2023 9:33 AM EDT): Getting TSH drawn today Tennis elbow 12/08/2023 Overview (12/08/2023): Patient works in the [employer] industry for a [employer]. Reports she developed Tennis Elbow last summer. Resolved Problems Problem Noted Date Diagnosed Date Resolved Date state 07/26/2024 08/29/2024 Normal intrauterine , antepartum 07/22/2024 07/26/2024 Echogenic intracardiac focus of fetus on ultrasound 02/21/2024 08/29/2024 Assessment & Plan (02/21/2024 9:49 AM EDT): Normal cell free DNA. As STATION INSTALLATION SUPERVISOR also present, ordered Level II on 02/21/24. Choroid plexus cyst 02/21/2024 08/29/20 Assessment & Plan (02/21/2024 9:49 AM EDT): Cell free DNA normal. As EIF also present, ordered level II u/s on 02/21/24. Rubella non-immune status, antepartum 01/02/2024 08/29/2024 Overview (01/02/2024): Offer MMR PP Assessment & Plan (07/22/2024 7:38 AM EDT): Offer MMR PP Maternal varicella, non-immune 01/02/2024 08/29/2024 Overview (01/02/2024): Offer Varivax PP Assessment & Plan (07/22/2024 7:36 AM EDT): Offer Varivax PP Encounter for supervision of normal first in second trimester 12/08/2023 08/29/2024 Overview (01/24/2024): CNM OB-CMI score: 0 [12/08/2023] Group PN care? * screening CFDNA and Fundamental Foresight Baby ASA Daily baby aspirin (162 mg) indicated for individuals at high- to moderate risk of developing pre-eclampsia, for a 10- to 20% reduction in pre-eclampsia and related adverse outcomes (IUGR, ). Begin at 12 weeks' EGA and continue until 39 weeks. Rh Pos GC/Chlam neg PAP Done at [facility] office in Fall - will need to request records Flu * COVID-19 vaccinated x2 (J&J and 1 booster) Hgb * GTT * Repeat RPR * Tdap * EPDS * PPBC * GBS * Feeding Plan Assessment & Plan (02/21/2024 9:47 AM EDT): Norma is a 28yo G1 at 19w4d who presents to routine OB visit following anatomy u/s. Anatomy u/s showed EIF and STATION INSTALLATION SUPERVISOR, disc these findings and reported that normal cell free DNA testing is reassuring. As two soft markers present, rec level II anatomy u/s, ordered. Disc anterior placenta. Remained of anatomy u/s WNL, measuring c/w dating. Norma reports to be feeling fairly well, noticing some discomfort laying in certain positions as her advances, otherwise denies complaints. Reports today that they would like to transfer their care to [facility] - will have her sign record release today. Pt aware she will receive call to schedule level II. Assessment & Plan (01/24/2024 11:19 AM EDT): Norma is a 28 y.o. at 15w4d doing well. Nausea is all better! Still some fatigue but overall better. Anatomy US ordered and will scheduled for 20 weeks. Info on GPC and CBE reviewed and sheet given. Will think about whether she wants GPC. Taking Baby ASA. Assessment & Plan (12/27/2023 9:35 AM EDT): Norma is a 28 y.o. at 11w4d doing ok. Just back from a trip to [place] and feeling exhausted, unsure if she is getting sick. Has been still nauseated but is using some of the strategies we talked about at last visit and they are helping. Happy to hear FHR today! Discussed expectations for care visits going forward. Will do labs today including CFDNA and Fundamental Foresight + Octavio sachs. Assessment & Plan (12/10/2023 12:41 PM EDT): - Pap done in fall at [facility] office, will need to request records - Discussed labs and genetic testing - would like CFDNA and Fundamental Foresight plus TaySachs- will return for lab slip and blood draw with intake labs in 1 week - Discussed nausea and vomiting in early and strategies for coping. Encouraged small frequent meals with protein. - Recommended avoiding alcohol in , we discussed this recommendation is based on the fact that it is indeterminate what is a safe amount of alcohol in and that alcohol is known to be harmful to development. This feels fine for Star - Follow up in 4 weeks or PRN Obesity in 12/08/2023 024 Overview (12/08/2023): Obesity in (BMI >30) BMI at Intake 34.9 Date Obesity plan of care discussed Pre- BMI > 50 transfer to tertiary care BMI > 50 at anytime during : schedule anesthesia consult Recommend daily baby aspirin if another risk factor is present (nulliparity, family h/o pre-eclampsia in mother or sister, age >= 35, IVF , previous with SGA, previous stillbirth, interval >= 10 years between pregnancies) First trimester screen for diabetes - HgbA1c or 1-hr glucose tolerance test: HgbA1c ordered with intake labs Nutrition counseling 11-20lb weight gain surveillance: Pre- BMI 35.0-39.9, weekly testing at 36 weeks, EFW at 32 and 36 weeks Pre- BMI 40 or more, weekly testing at 34 weeks, EFW 32 and 36 weeks Induction only if indicated PP lovenox according to guidelines Assessment & Plan (12/27/2023 9:34 AM EDT): We discussed with BMI > 30 and Nulliparity (having first baby) there is a higher risk of pre-eclampsia and it is recommended that she taken daily Baby ASA. She agrees and Rx sent. Immunizations Immunization Administration Dates Next Due INFLUENZA, SPLIT VIRUS, TRIVALENT PF 07/26/2024 MMR 07/26/2024 Family History Medical History Relation Comments No Known Problems Brother 1 No Known Problems Brother 2 No Known Problems Brother 3 Diabetes Father Cancer Maternal Grandfather brain cance r No Known Problems Mother Diabetes Paternal Grandmother No Known Problems Sister 1 No Known Problems Sister 2 No Known Problems Sister 3 Relation Status Comments Brother 1 Alive Brother 2 Alive Brother 3 Alive Father Alive Maternal Grandfather Maternal Grandmother Mother Alive Paternal Grandfather Paternal Grandmother Sister 1 Alive Sister 2 Alive Sister 3 Alive Social History Tobacco Use Types Packs/Day Years Used Date Smoking Tobacco: Never Smokeless Tobacco: Never Alcohol Use Standard Drinks/Week Comments Not Currently 0 (1 standard drink = 0.6 oz pur e alcohol) Education Answer Date Recorded Are you interested in more education? Not on radha e 03/15/2023 Are you concerned about learning? Not on file 03/15/2023 No 03/15/2023 No 03/15/2023 Food Answer Date Recorded Within the past 6 months we worried whether our food would run out before we got money to buy more. Never True 07/22/2024 Within the past 6 months the food we bought just didn't last and we didn't have enough money to get more. Never True Residential Stability Answer Date Recor ded What is your housing situation today? I have myranda christian 07/22/2024 How many times have you moved in the past 12 wed ths? One time 07/22/2024 Paying for Meds Answer Date Recorded Do you have trouble paying for medicines? No 07/22/2024 Paying Utility Bills Answer Date Record ed Do you have trouble paying your heating or elect ricity bill? No 07/22/2024 Transportation Answer Date Recorded Has the lack of transportati on kept you from medical appointments or from getting medications? No 07/22/2024 Digital Access Answer Date Recorded No 07/22/2024 Yes 07/22/2024 Do you have reliable internet access at home? Ye s 07/22/2024 Do you have a device (e.g., phone, tablet, computer) with a working camera? Yes 07/22/2024 Intimate Partner Violence Answer Date R ecorded Are you denied basic needs s uch as food, clothing, or medical care? No 07/22/2024 In the past 12 months have y ou been in a relationship with a person who hurts, threatens, or tries to control you? No 07/22/2024 Are you denied basic needs s uch as food, clothing, or medical care? No 07/22/2024 In the past 12 months have y ou been in a relationship with a person who hurts, threatens, or tries to control you? No 07/22/2024 Comments No Sex and Gender Information Value Date Recorded Sex Assigned at Female 03/09/2023 9:43 AM EDT Legal Sex Female 9:28 AM EDT Gender Identity Female 03/09/2023 9:31 AM EDT Sexual Orientation Straight 03/09/2023 9: 43 AM EDT Last Filed Vital Signs Vital Sign Reading Time Taken Comments Blood Pressure 100/70 08/24/2024 1:36 PM EST Pulse 63 07/26/2024 10:15 AM EST Temperature 37.1 C (98.8 F) 07/26/2024 10:15 AM EST Respiratory Rate 18 07/26/2024 10:15 AM EST Oxygen Saturation 96% 07/26/2024 10:15 AM EST Inhaled Oxygen Concentration - - Weight 103 kg (227 lb) 08/24/2024 1:36 PM EST Height 177.8 cm (5' 10 ) 07/22/2024 7:40 AM EDT Body Mass Index 32.57 07/22/2024 7:40 AM EDT Plan of Treatment Health Maintenance Due Date Last Done Comments DEPRESSION SCREENING 2006 PAP SMEAR 2015 TSH LEVEL 12/26/2024 12/27/2023 INFLUENZA VACCINE (#1) 2025 07/26/2024 COVID-19 VACCINE (3 - 2024-2 6 season) 2025 10/03/2021, 12/21/2020 Adult Td,Tdap Booster 06/21/2034 06/21/2024 , 11/21/2020 HEPATITIS A VACCINES Aged Out 01/22/2016 No long er eligible based on patient's age to complete this topic HEPATITIS C SCREENING Completed 12/27/2023 , 12/27/2023 HIV ONE-TIME SCREENING (18-6 5 YEARS) Completed 12/27/2023 SMOKING STATUS SCREENING (On ce After 26 Yrs) Completed 07/22/2024 HIB VACCINES Aged Out No longer eligi ble based on patient's age to complete this topic MENINGOCOCCAL VACCINES (ACWY) Aged Out No longer eligible based on patient's age to complete this topic MENINGOCOCCAL VACCINES (B) Aged Out N o longer eligible based on patient's age to complete this topic PNEUMOCOCCAL VACCINES (0-49 years) Aged Out No longer eligible b ased on patient's age to complete this topic Medical Devices Not on file Procedures Procedure Name Priority Date/Time Associated Diagnosis Comments HEPATITIS C ANTIBODY, QUALITATIVE Routine 12/27/2023 9:49 AM EDT Need for hepatitis C screening test TSH WITH REFLEX Routine 12/27/2023 9:49 AM EDT Disorder of thyroid from Last 3 Months or Most Recently Relevant to Health Maintenance Results * TSH with reflex (12/27/2023 9:49 AM EDT) TSH 0.78 0.27 - 4.20 uIU/mL [facility] Blood 12/27/2023 9:49 AM EDT 12/27/2023 10:15 AM EDT us Carey ALBERTO LAB BLOOD BKR ORDERABLES Final Result Performing Organization Address [facility]/ZIP Co de Phone Number [address] [address] * Hepatitis C antibody, qualitative (12/27/2023 9:49 AM EDT) HCV NON-REACTIV E NON-REACTI VE [facility] Blood 12/27/2023 9:49 AM EDT 12/27/2023 10:15 AM EDT us Carey ALBERTO LAB BLOOD BKR ORDERABLES Final Result Performing Organization Address City/[facility]/ZIP Co de Phone Number [address] [address] from Last 3 Months or Most Recently Relevant to Health Maintenance Insurance [place] [id number] [facility] [place] [id number] [facility] [place] [id number] Advance Directives For more information, please contact: [phone] (9AM - 5PM [facility], Wednesday-Wednesday) * Full Code (Latest Code Status on File) Date Activated Date Inactivated Comments 07/22/2024 3:20 PM Question Answer Comments Code Status Confirmed With: Patient Care Teams Mine Technician Relationship Specialty Start Date End Date Corina Delacruz MD [address] [place] [id number] [email or web address] PCP - General Family Medicine 08/01/24 Additional Source Comments The information contained in this document represents components of the legal health record. It is not the complete legal health record.[facility]
--- OUTSIDE RECORDS SUMMARY | 2025-09-17 16:50 | XMS_ITS | Encounter Summary ---
Author Organization [facility] Address [address] [facility] [address] [place] [address] Phone Care Team Providers Care Enamel Pulverizer Name Role Phone Shani Zhao Primary Care Provider [phone] Corina Delacruz MD Primary Care Provider + Encounter Details Date Type Department Care Team (Late st Contact Info) Description 07/22/2024 Procedure Pass OR Admitting Dept - Virtual Department [address] [place] [address] Social History Tobacco Use Types Packs/Day Years [...] your housing situation today? I have myranda sing 07/22/2024 How many times have you moved [...] Orientation Straight 03/09/2023 9: 43 AM EDT documented as of this encounter Plan of Treatment Not on file documented as of this encounter Visit Diagnoses Not on filedocumented in this encounter Care Teams Enamel Pulverizer Relationship Specialty Start Date End Date Shani Zhao FNP [address] [place] [address] PCP - General Nurse Practitioner 03/09/23 07/31/24 Corina Delacruz MD [address] [place] [id number] PCP - General Family Medicine 08/01/24 documented as of this encounter Additional Source Comments The information contained in this document represents components of the legal health record. It is not the complete legal health record.[facility]
== END 2025-09-17 14:55 | disposition home or self-care (01) ==
LOC: HO.ENCR 14:29
PROVIDERS: PCP Family Medicine; Visit Provider Internal Medicine Endocrinology, Diabetes & Metabolism
DX: C73 Malignant neoplasm of thyroid gland (principal)
CPT/HCPCS: 99213

== ENCOUNTER → 2025-09-17 14:28 | Outpatient (BNVA) | payer MEDICAID, SELFPAY | PROVIDERS: PCP Family Medicine; Visit Provider Internal Medicine Endocrinology, Diabetes & Metabolism | DX: C73 Malignant neoplasm of thyroid gland (principal); Z79.899 Other long term (current) drug therapy | CPT/HCPCS: 99212 ==